=== PATIENT | female | born 1980 | race Caucasian/White ===

== ENCOUNTER 2016-10-25 04:27 | Emergency (ER) | payer BC, MEDICAID ==
--- NOTE | 2016-10-25 05:51 | ER Document Report ---
ED Medical Screen (RME) - General Chief Complaint: Abdominal Pain Stated Complaint: STOMACH PAIN DURING EARLY Time Seen by Provider: 10/25/16 05:48 Mode of Arrival: Ambulatory Information source: Patient Notes: 36-year-old female presents to ED for pelvic pain at 12 weeks . She states she is high risk with Rh- blood. She is a 4 para 0. She states when child was born at 20 weeks treatment for 20 minutes left thumb has not been up on her left. She had a miscarriage last November. She states [facility] and getting ultrasounds about every 2 weeks. States this is the first time she has had pain this time but she has had migraines. She denies any vaginal bleeding. Patient has left pelvic tenderness with hyperactive bowel sounds. I have greeted and performed a rapid initial assessment of this patient. A comprehensive ED assessment and evaluation of the patient, analysis of test results and completion of medical decision making process will be conducted by an additional ED providers. TRAVEL OUTSIDE OF THE [place] IN LAST 30 DAYS: No - Related Data Allergies/Adverse Reactions: promethazine HCl [From Phenergan] Allergy (Intermediate, Verified 08/26/13 10:34 ) Hives hydrocodone [Hydrocodone] Allergy (Unknown, Verified 08/26/13 10:34) VOMITING, hives acetaminophen [From Vicodin] Allergy (Verified 02/15/15 11:17) aspirin [From Fiorinal] Allergy (Verified 08/26/13 10:34) butalbital [From Fioricet] Allergy (Verified 08/26/13 10:34) donepezil HCl [From Aricept] Allergy (Verified 02/15/15 11:17) hydrocodone bitartrate [From Vicodin] Allergy (Verified 02/15/15 11:17) ibuprofen [Ibuprofen] Allergy (Verified 08/26/13 10:34) latex [Latex] Allergy (Verified 08/26/13 10:34) meloxicam [From Mobic] Allergy (Verified 08/26/13 10:34) povidone-iodine [From Betadine] Allergy (Verified 08/26/13 10:34) Soap [From Betadine] Allergy (Verified 08/26/13 10:34) tramadol HCl [From Ultram] Adverse Reaction (Intermediate, Verified 08/26/13 10: 34) VOMITING hydromorphone HCl [From Dilaudid] Adverse Reaction (Unknown, Verified 08/26/13 10:34) VOMITING Past Medical History - Social History Chew tobacco use (# tins/day): No Frequency of alcohol use: Rare Drug Abuse: None Neurological Medical History: Reports: Hx Migraine Renal/ Medical History: Reports: Hx Ovarian Cysts - History of PCOS.. Denies : Hx Peritoneal Dialysis Psychiatric Medical History: Reports: Hx Depression Past Surgical History: Reports: Hx Oral Surgery, Hx Orthopedic Surgery - rt foot x2 - Immunizations Hx Diphtheria, Pertussis, Tetanus Vaccination: Yes Physical Exam - Vital signs Vitals: Temp Pulse Resp BP Pulse Ox 97.7 F 72 18 139/78 H 98 10/25/16 04:33 10/25/16 04:33 10/25/16 04:33 10/25/16 04:33 10/25/16 04:33 Course - Vital Signs Vital signs: Temp Pulse Resp BP Pulse Ox 97.7 F 72 18 139/78 H 98 10/25/16 04:33 10/25/16 04:33 10/25/16 04:33 10/25/16 04:33 10/25/16 04:33
[2016-10-25 06:27] LABS: ABSOLUTE BASOPHILS # (AUTO) 0.1 10^3/uL (0.0-0.2); ABSOLUTE EOSINOPHILS # (AUTO) 0.1 10^3/uL (0.0-0.6); ABSOLUTE LYMPHOCYTES (AUTO) 1.5 10^3/uL (0.5-4.7); ABSOLUTE MONOCYTES (AUTO) 0.8 10^3/uL (0.1-1.4); ABSOLUTE NEUT (AUTO) 8.1 10^3/uL (1.7-8.2); BASOPHILS % (AUTO) 0.6 % (0-2); EOSINOPHILS % (AUTO) 1.1 % (0-6); HEMATOCRIT 38.6 % (36.0-47.0); HGB HCT DIFFERENCE 0.4; MEAN CORPUSCULAR HEMOGLOBIN 32.1 pg (27.0-33.4); MEAN CORPUSCULAR HGB CONC 33.7 g/dL (32.0-36.0); MEAN CORPUSCULAR VOLUME 95 fl (80-97); MONOCYTES % (AUTO) 7.9 % (3-13); RED BLOOD COUNT 4.05 10^6/uL (3.72-5.28); RED CELL DISTRIBUTION WIDTH 13.4 % (11.5-14.0); SEGMENTED NEUTROPHILS % (AUTO) 76.4 % (42-78); WHITE BLOOD COUNT 10.6 10^3/uL (4.0-10.5)
[2016-10-25 06:40] LABS: APPEARANCE,URINE SLIGHTLY-CLOUDY; BILIRUBIN,URINE NEGATIVE (NEGATIVE); GLUCOSE, URINE NEGATIVE (NEGATIVE); KETONES,URINE NEGATIVE (NEGATIVE); LEUKOCYTE ESTERASE,URINE NEGATIVE (NEGATIVE); NITRITE,URINE NEGATIVE (NEGATIVE); PROTEIN,URINE NEGATIVE (NEGATIVE); URINE SPECIFIC GRAVITY 1.009; UROBILINOGEN,URINE NEGATIVE mg/dL (<2.0)
[2016-10-25 06:59] LABS: ANION GAP 9 (5-19); BLOOD UREA NITROGEN 7 mg/dL (7-20); CALCIUM 9.2 mg/dL (8.4-10.2); CARBON DIOXIDE 24 mmol/L (22-30); CHLORIDE 105 mmol/L (98-107); CREATININE RESULT 0.54 mg/dL (0.52-1.25); GLUCOSE 76 mg/dL (75-110); POTASSIUM 3.9 mmol/L (3.6-5.0); SODIUM 138.4 mmol/L (137-145)
--- NOTE | 2016-10-25 07:17 | RADIOLOGY REPORT (SQ) ---
EXAM DESCRIPTION: U/S [id number] TRNABD 1GES W/ODOP COMPLETED DATE/TIME: 10/25/2016 7:00 am REASON FOR STUDY: r lower abd pain COMPARISON: None. TECHNIQUE: Transabdominal static and realtime grayscale images acquired of the pelvis. Additional se lected spectral and color Doppler images recorded. All images stored on PACs. bHCG: Not available. LIMITATIONS: None. FINDINGS: FETUS: Living intrauterine . EGA: 12 weeks and 0 days IVONE: 05/09/2017 FHR: 158 beats per minute. SUBCHORIONIC BLEED: No. SIZE OF BLEED: Not applicable. UTERUS: No masses. No anomalies. CERVICAL LENGTH: 2.7 cm. Closed. RIGHT ADNEXA: Normal ovary with normal vascular flow. No adnexal free fluid. No adnexal masses. 3.5 cm. LEFT ADNEXA: Normal ovary with normal vascular flow. No adnexal free fluid. No adnexal masses. 2.5 cm. FREE FLUID: None. OTHER: No other significant finding. IMPRESSION: LIVING INTRAUTERINE . EGA 12 weeks 0 days. Trimester of : First - 0 to 13 weeks. TECHNICAL DOCUMENTATION: JOB ID: [id number] [employer]- All Rights Reserved
--- NOTE | 2016-10-25 08:45 | ER Document Report ---
ED General - General Chief Complaint: Abdominal Pain Stated Complaint: STOMACH PAIN DURING EARLY Time Seen by Provider: 10/25/16 05:48 Mode of Arrival: Ambulatory TRAVEL OUTSIDE OF THE [place] IN LAST 30 DAYS: No - HPI Patient complains to provider of: Lower abdominal pain Notes: Patient coming in for evaluation of right-sided lower abdominal pain ongoing for the last 2-3 days. Patient is a currently approximately 12 weeks . 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 Patient states receives ultrasounds approximately every 2 weeks states last ultrasound shows a ovarian cyst on the right side. Denies any fevers chills nausea vomiting diarrhea. Patient is compliant with her medications prescribed. - Related Data Allergies/Adverse Reactions: promethazine HCl [From Phenergan] Allergy (Intermediate, Verified 08/26/13 10:34 ) Hives hydrocodone [Hydrocodone] Allergy (Unknown, Verified 08/26/13 10:34) VOMITING, hives acetaminophen [From Vicodin] Allergy (Verified 02/15/15 11:17) aspirin [From Fiorinal] Allergy (Verified 08/26/13 10:34) butalbital [From Fioricet] Allergy (Verified 08/26/13 10:34) donepezil HCl [From Aricept] Allergy (Verified 02/15/15 11:17) hydrocodone bitartrate [From Vicodin] Allergy (Verified 02/15/15 11:17) ibuprofen [Ibuprofen] Allergy (Verified 08/26/13 10:34) latex [Latex] Allergy (Verified 08/26/13 10:34) meloxicam [From Mobic] Allergy (Verified 08/26/13 10:34) povidone-iodine [From Betadine] Allergy (Verified 08/26/13 10:34) Soap [From Betadine] Allergy (Verified 08/26/13 10:34) tramadol HCl [From Ultram] Adverse Reaction (Intermediate, Verified 08/26/13 10: 34) VOMITING hydromorphone HCl [From Dilaudid] Adverse Reaction (Unknown, Verified 08/26/13 10:34) VOMITING Past Medical History - General Information source: Patient - Social History Smoking Status: Never Smoker Chew tobacco use (# tins/day): No Frequency of alcohol use: Rare Drug Abuse: None Family History: Reviewed & Not Pertinent Patient has suicidal ideation: No Patient has homicidal ideation: No Neurological Medical History: Reports: Hx Migraine Renal/ Medical History: Reports: Hx Ovarian Cysts - History of PCOS.. Denies : Hx Peritoneal Dialysis Psychiatric Medical History: Reports: Hx Depression Past Surgical History: Reports: Hx Oral Surgery, Hx Orthopedic Surgery - rt foot x2 - Immunizations Hx Diphtheria, Pertussis, Tetanus Vaccination: Yes Review of Systems - Review of Systems Constitutional: No symptoms reported EENT: No symptoms reported Cardiovascular: No symptoms reported Respiratory: No symptoms reported Gastrointestinal: Abdominal pain Genitourinary: No symptoms reported Female Genitourinary: No symptoms reported Musculoskeletal: No symptoms reported Skin: No symptoms reported Hematologic/Lymphatic: No symptoms reported Neurological/Psychological: No symptoms reported Physical Exam - Vital signs Vitals: Temp Pulse Resp BP Pulse Ox 97.7 F 72 18 139/78 H 98 10/25/16 04:33 10/25/16 04:33 10/25/16 04:33 10/25/16 04:33 10/25/16 04:33 Interpretation: Normal - General General appearance: Appears well, Alert - HEENT Head: Normocephalic, Atraumatic Eyes: Normal Pupils: PERRL - Respiratory Respiratory status: No respiratory distress Chest status: Nontender Breath sounds: Normal Chest palpation: Normal - Cardiovascular Rhythm: Regular Heart sounds: Normal auscultation Murmur: No - Abdominal Inspection: Normal Distension: No distension Bowel sounds: Normal Tenderness: Nontender Organomegaly: No organomegaly - Back Back: Normal, Nontender - Extremities General upper extremity: Normal inspection, Nontender, Normal color, Normal ROM , Normal temperature General lower extremity: Normal inspection, Nontender, Normal color, Normal ROM , Normal temperature, Normal weight bearing. No: Wendy's sign - Neurological Neuro grossly intact: Yes Cognition: Normal Orientation: AAOx4 [place] Coma Scale Eye Opening: Spontaneous [place] Coma Scale Verbal: Oriented [place] Coma Scale Motor: Obeys Commands [place] Coma Scale Total: 15 Speech: Normal Motor strength normal: LUE, RUE, LLE, RLE Sensory: Normal - Psychological Associated symptoms: Normal affect, Normal mood - Skin Skin Temperature: Warm Skin Moisture: Dry Skin Color: Normal Course - Re-evaluation Re-evalutation: 10/25/16 09:29 The patient presents with abdominal pain without signs of peritonitis or other life-threatening or serious etiology. The patient appears stable for discharge and has been instructed to return immediately if the symptoms worsen in any way , or in 8-12hr if not improved for re-evaluation. The patient has been instructed to return if the symptoms worsen or change in any way. Discussed patient's case with [employer]. Agree at this time patient can be discharged home follow-up in the clinic as scheduled. Patient agrees to this plan patient was discharged - Vital Signs Vital signs: Temp Pulse Resp BP Pulse Ox 97.9 F 67 16 117/73 100 10/25/16 09:18 10/25/16 09:18 10/25/16 09:18 10/25/16 09:18 10/25/16 09:18 - Laboratory Result Diagrams: 10/25/16 05:55 10/25/16 05:55 Laboratory results interpreted by me: 10/25/16 10/25/16 10/25/16 05:37 05:55 05:55 WBC 10.6 H Beta HCG, Quant 199098.00 H Urine Ascorbic Acid 20 H Discharge - Discharge Clinical Impression: Abdominal pain during Qualifiers: Trimester: first trimester Qualified Code(s): O26.891 - Other specified related conditions, first trimester Condition: Good Disposition: HOME, SELF-CARE Instructions: Abdominal Pain ([facility]), Pelvic Pain in ([facility]) Additional Instructions: Your results today reveal no critical etiology for the right-sided abdominal pain. Ultrasound is normal. Please make sure he follow-up with your [employer]. Continue take her previously prescribed medications Referrals: YANCI KLEIN MD [Primary Care Provider] - Follow up as needed
[2016-10-25 09:21] VITALS: BP 117/73
== END 2016-10-25 09:20 | disposition home or self-care (01) ==
LOC: ER 04:27
DX: O26.891 Other specified pregnancy related conditions, first trimester (principal); R10.9 Unspecified abdominal pain; Z3A.12 12 weeks gestation of pregnancy; Z88.6 Allergy status to analgesic agent; Z90.710 Acquired absence of both cervix and uterus
CPT/HCPCS: 36415; 76801; 80048; 81001; 84702; 85025; 99284

== ENCOUNTER 2016-11-04 05:32 | Day surgery (SDC) | payer MEDICAID ==
[2016-11-04 06:41] LABS: PROTHROMBIN TIME 13.3 SEC (11.4-15.4)
[2016-11-04 06:42] LABS: PARTIAL THROMBOPLASTIN TIME 29.6 SEC (23.5-35.8)
[2016-11-04 06:53] LABS: HEMATOCRIT 36.9 % (36.0-47.0); HEMOGLOBIN 12.4 g/dL (12.0-15.5); HGB HCT DIFFERENCE 0.3; MEAN CORPUSCULAR HGB CONC 33.5 g/dL (32.0-36.0); MEAN CORPUSCULAR VOLUME 96 fl (80-97); RED BLOOD COUNT 3.86 10^6/uL (3.72-5.28); RED CELL DISTRIBUTION WIDTH 13.5 % (11.5-14.0); WHITE BLOOD COUNT 9.9 10^3/uL (4.0-10.5)
[2016-11-04] MEDS ORDERED: FENTANYL CITRATE INJ/PF 100 MCG/2 ML AMPUL ONE (07:20)
[2016-11-04] MEDS ORDERED: PROPOFOL INJ 200 MG/20 ML VIAL IV ONE (07:21)
--- NOTE | 2016-11-04 08:20 | Operative Report ---
Operative Report DATE OF SURGERY: 11/04/16 PREOPERATIVE DIAGNOSIS: Incompetent cervix, history of a LEEP POSTOPERATIVE DIAGNOSIS: Same OPERATION: Cervical cerclage, Martin'isra SURGEON: VAMSI BENNETT ANESTHESIA: Spinal TISSUE REMOVED OR ALTERED: Cervix COMPLICATIONS: None ESTIMATED BLOOD LOSS: 10 cc INTRAOPERATIVE FINDINGS: Short appearing cervix PROCEDURE: The patient was taken to the OR and placed in the dorsolithotomy position after her spinal. Her perineum and vagina were prepped and draped in a sterile fashion. Her bladder was drained with a red rubber catheter. A weighted speculum was placed in the vagina. Using a Brianda retractor anteriorly and a sidewall retractor on each side of the vagina exposure was obtained. The cervix appeared shortened. The bladder reflection and the posterior reflection were identified. A #2 Ethibond suture was then placed starting at 12:00 distal to the bladder refract reflection. The first stitch was placed from 12 to 9:00 then 9:00 to 6:00 6:00 to 3:00 and 3:00 back to 12:00. The suture was tied. The small amount of bleeding was evacuated from the vagina. Instruments removed. She was brought to recovery room in stable condition.
[2016-11-04] MEDS ORDERED: ACETAMINOPHEN 325 MG TABLET ONE (09:09)
--- NOTE | 2016-11-04 09:51 | RADIOLOGY REPORT (SQ) ---
EXAM DESCRIPTION: U/S OB LIMITED COMPLETED DATE/TIME: 11/04/2016 9:11 am REASON FOR STUDY: S/P CERCLAGE,CERVICAL LENGTH AND FHT'S ONLY O20.0 THREATENED COMPARISON: 10/25/2016 TECHNIQUE: Limited transabdominal grayscale ultrasound for evaluation of specific requested obstetri segundo parameters. LIMITATIONS: None. FINDINGS: CERVICAL LENGTH: 3.9 cm Closed. FHR: 165 beats per minute. OTHER: No other significant findings. IMPRESSION: LIMITED OBSTETRICAL ULTRASOUND WITH MEASURED PARAMETERS DELINEATED ABOVE. Trimester of : Second trimester - 13 weeks 1 day to 27 weeks 6 days. TECHNICAL DOCUMENTATION: JOB ID: [id number] [employer]- All Rights Reserved
[2016-11-04 13:05] VITALS: BP 111/71
== END 2016-11-04 18:30 | disposition home or self-care (01) ==
LOC: OROUT 05:32
PROVIDERS: ATTEND Obstetrics & Gynecology
PROC: 0UVC7ZZ Restriction of Cervix, Via Natural or Artificial Opening (ICD-10-PCS; principal; 2016-11-04 07:30)
DX: O34.32 Maternal care for cervical incompetence, second trimester (principal); O99.282 Endocrine, nutritional and metabolic diseases complicating pregnancy, second trimester; E07.9 Disorder of thyroid, unspecified; R01.1 Cardiac murmur, unspecified; Z79.899 Other long term (current) drug therapy; Z88.5 Allergy status to narcotic agent; Z88.8 Allergy status to other drugs, medicaments and biological substances; Z88.6 Allergy status to analgesic agent; Z91.040 Latex allergy status
CPT/HCPCS: 86900; 86901; 36415; 86850; 85027; 85610; 85730; 76815; 59320; J2790; J3490; 948; J2704; J3010

== ENCOUNTER 2016-11-06 10:53 | Emergency (ER) | payer MEDICAID ==
--- NOTE | 2016-11-06 11:37 | ER Document Report ---
ED Medical Screen (RME) - General Chief Complaint: Vaginal Itching Stated Complaint: POST OP PROBLEM Time Seen by Provider: 11/06/16 11:34 Mode of Arrival: Ambulatory Information source: Patient Notes: This is a 36-year-old female 3 para 0, history of 2 prior miscarriages ( first 1 at 20 weeks, second 1 at 8 weeks), status post cervical cerclage is ago by Dr. Coronado for threatened miscarriage. The patient presents to the emergency with room with vaginal itching and dysuria with some blood clots. She had ccalled the OB for Dr. Coronado and was referred to the emergency room. Patient denies any syncope, chest pain, shortness of breath or abdominal pain. Obstetrical ultrasound was 2 days ago which revealed a viable intrauterine gestation in second trimester. TRAVEL OUTSIDE OF THE [place] IN LAST 30 DAYS: No - Related Data Allergies/Adverse Reactions: acetaminophen [From Vicodin] Allergy (Severe, Verified 11/03/16 13:25) itch,hives butalbital [From Fioricet] Allergy (Severe, Verified 11/03/16 13:25) Hives latex [Latex] Allergy (Severe, Verified 11/03/16 13:25) hives,itch shellfish derived Allergy (Severe, Verified 11/03/16 13:50) Hives aspirin [From Fiorinal] Allergy (Intermediate, Verified 11/03/16 13:25) Hives promethazine HCl [From Phenergan] Allergy (Intermediate, Verified 08/26/13 10:34 ) Hives hydrocodone [Hydrocodone] Allergy (Unknown, Verified 08/26/13 10:34) VOMITING, hives donepezil HCl [From Aricept] Allergy (Verified 02/15/15 11:17) hydrocodone bitartrate [From Vicodin] Allergy (Verified 02/15/15 11:17) ibuprofen [Ibuprofen] Allergy (Verified 08/26/13 10:34) meloxicam [From Mobic] Allergy (Verified 08/26/13 10:34) povidone-iodine [From Betadine] Allergy (Verified 11/03/16 13:25) Hives Soap [From Betadine] Allergy (Verified 08/26/13 10:34) tramadol HCl [From Ultram] Adverse Reaction (Intermediate, Verified 08/26/13 10: 34) VOMITING hydromorphone HCl [From Dilaudid] Adverse Reaction (Unknown, Verified 08/26/13 10:34) VOMITING Past Medical History - General Last Menstrual Period: 07/16/16 - Social History Chew tobacco use (# tins/day): No Frequency of alcohol use: None Drug Abuse: None - Past Medical History Cardiac Medical History: Denies: Hx Coronary Artery Disease, Hx Heart Attack, Hx Hypertension Pulmonary Medical History: Reports: Hx Bronchitis Denies: Hx Asthma, Hx COPD, Hx Pneumonia Neurological Medical History: Reports: Hx Migraine. Denies: Hx Cerebrovascular Accident, Hx Seizures Renal/ Medical History: Reports: Hx Ovarian Cysts - History of PCOS.. Denies : Hx Peritoneal Dialysis Musculoskeltal Medical History: Denies Hx Arthritis Psychiatric Medical History: Reports: Hx Depression Past Surgical History: Reports: Hx Oral Surgery, Hx Orthopedic Surgery - rt foot x2 - Immunizations Hx Diphtheria, Pertussis, Tetanus Vaccination: No
[2016-11-06 12:19] LABS: APPEARANCE,URINE SLIGHTLY-CLOUDY; BILIRUBIN,URINE NEGATIVE (NEGATIVE); GLUCOSE, URINE NEGATIVE (NEGATIVE); KETONES,URINE TRACE mg/dL (NEGATIVE); LEUKOCYTE ESTERASE,URINE TRACE (NEGATIVE); NITRITE,URINE NEGATIVE (NEGATIVE); PROTEIN,URINE NEGATIVE (NEGATIVE); URINE SPECIFIC GRAVITY 1.027; UROBILINOGEN,URINE NEGATIVE mg/dL (<2.0)
--- NOTE | 2016-11-06 13:11 | ER Document Report ---
ED GI/ - General Chief Complaint: Vaginal Itching Stated Complaint: POST OP PROBLEM Time Seen by Provider: 11/06/16 11:34 Mode of Arrival: Ambulatory Information source: Patient Notes: 36-year-old female weeks 4 days is complaining of introitus and vaginal burning and itching with light pink spotting Monday and Monday and brown clot last night. Dr. Martinez did a cerclage Monday. No pelvic pain. No fever. She said it would be okay to look at her external genitalia but does not want me to look inside her vagina she wants Dr. Martinez called first. She had already spoken to Tamra Soto over the phone who recommended having Dr. Martinez look at her. dr martinez said for her to follow up this week, no treatment needed. TRAVEL OUTSIDE OF THE [place] IN LAST 30 DAYS: No - Related Data Allergies/Adverse Reactions: butalbital [From Fioricet] Allergy (Severe, Verified 11/03/16 13:25) Hives latex [Latex] Allergy (Severe, Verified 11/03/16 13:25) hives,itch shellfish derived Allergy (Severe, Verified 11/03/16 13:50) Hives aspirin [From Fiorinal] Allergy (Intermediate, Verified 11/03/16 13:25) Hives promethazine HCl [From Phenergan] Allergy (Intermediate, Verified 08/26/13 10:34 ) Hives hydrocodone [Hydrocodone] Allergy (Unknown, Verified 08/26/13 10:34) VOMITING, hives donepezil HCl [From Aricept] Allergy (Verified 02/15/15 11:17) hydrocodone bitartrate [From Vicodin] Allergy (Verified 02/15/15 11:17) ibuprofen [Ibuprofen] Allergy (Verified 08/26/13 10:34) meloxicam [From Mobic] Allergy (Verified 08/26/13 10:34) povidone-iodine [From Betadine] Allergy (Verified 11/03/16 13:25) Hives Soap [From Betadine] Allergy (Verified 08/26/13 10:34) tramadol HCl [From Ultram] Adverse Reaction (Intermediate, Verified 08/26/13 10: 34) VOMITING hydromorphone HCl [From Dilaudid] Adverse Reaction (Unknown, Verified 08/26/13 10:34) VOMITING Past Medical History - General Information source: Patient Last Menstrual Period: 07/16/16 - Social History Smoking Status: Never Smoker Chew tobacco use (# tins/day): No Frequency of alcohol use: None Drug Abuse: None Family History: Reviewed & Not Pertinent Patient has suicidal ideation: No Patient has homicidal ideation: No Pulmonary Medical History: Reports: Hx Bronchitis Neurological Medical History: Reports: Hx Migraine Renal/ Medical History: Reports: Hx Ovarian Cysts - History of PCOS. Psychiatric Medical History: Reports: Hx Depression Surgical Hx: Negative Past Surgical History: Reports: Hx Oral Surgery, Hx Orthopedic Surgery - rt foot x2 - Immunizations Hx Diphtheria, Pertussis, Tetanus Vaccination: No Review of Systems - Review of Systems Constitutional: No symptoms reported EENT: No symptoms reported Cardiovascular: No symptoms reported Respiratory: No symptoms reported Gastrointestinal: No symptoms reported Genitourinary: No symptoms reported Female Genitourinary: See HPI Musculoskeletal: No symptoms reported Skin: No symptoms reported Hematologic/Lymphatic: No symptoms reported Neurological/Psychological: No symptoms reported Physical Exam - Vital signs Vitals: Temp Pulse Resp BP Pulse Ox 97.9 F 95 16 113/79 100 11/06/16 10:58 11/06/16 10:58 11/06/16 10:58 11/06/16 10:58 11/06/16 10:58 Interpretation: Normal - General General appearance: Appears well, Alert In distress: None - HEENT Head: Normocephalic, Atraumatic Eyes: Normal Pupils: PERRL Neck: Supple - Respiratory Respiratory status: No respiratory distress Chest status: Nontender Breath sounds: Normal Chest palpation: Normal - Cardiovascular Rhythm: Regular Heart sounds: Normal auscultation Murmur: No - Abdominal Inspection: Normal Distension: No distension Bowel sounds: Normal Tenderness: Nontender Organomegaly: Other - ? fundus at symphysis pubis - Back Back: Normal, Nontender. No: CVA tenderness - Extremities General upper extremity: Normal inspection, Nontender, Normal color, Normal ROM , Normal temperature General lower extremity: Normal inspection, Nontender, Normal color, Normal ROM , Normal temperature, Normal weight bearing. No: Wendy's sign - Neurological Neuro grossly intact: Yes Cognition: Normal Orientation: AAOx4 [place] Coma Scale Eye Opening: Spontaneous [place] Coma Scale Verbal: Oriented [place] Coma Scale Motor: Obeys Commands [place] Coma Scale Total: 15 Speech: Normal Motor strength normal: LUE, RUE, LLE, RLE Sensory: Normal - Psychological Associated symptoms: Normal affect, Normal mood - Skin Skin Temperature: Warm Skin Moisture: Dry Skin Color: Normal Skin irregularity: negative: Rash Course - Re-evaluation Re-evalutation: 11/06/16 15:35 Patient thinks her labia are mildly swollen, wet prep sent to the lab there was no blood on the Q-tip, I inserted a Q-tip into the introitus to look for yeast. This non malodorous discharge at the introitus. FHT 153 per nurse. 11/06/16 16:08 wet prep negative for yeast. Call to dr. martinez. 11/06/16 16:13 toñito martinez states that she does not need treatment today, call for appointment to be rechecked this week. will have her return to the ER for any bleeding or pain. 11/06/16 16:23 pt denies allergy to tylenol, it is hydrocodone that she gets hives from, is OK with percocet. Told the nurse to change the allergy status - Vital Signs Vital signs: Temp Pulse Resp BP Pulse Ox 98.1 F 90 16 110/74 100 11/06/16 16:43 11/06/16 16:43 11/06/16 16:43 11/06/16 16:43 11/06/16 16:43 - Laboratory Laboratory results interpreted by me: 11/06/16 11:38 Urine Ketones TRACE H Ur Leukocyte Esterase TRACE H Urine Ascorbic Acid 40 H Discharge - Discharge Clinical Impression: introitus and labial parathesia, Spotting Condition: Good Disposition: HOME, SELF-CARE Instructions: Bleeding During Early ([facility]), Vaginitis ([facility]) Additional Instructions: to er if any worsening symptoms, bleeding, pain dr. martinez wants you to be rechecked this week in the office Forms: Return to Work Referrals: YANCI KLEIN MD [Primary Care Provider] - Follow up tomorrow (call for appointment this week)
[2016-11-06] MEDS ORDERED: ACETAMINOPHEN 325 MG TABLET PO ONE (16:21)
[2016-11-06 16:44] VITALS: BP 110/74
== END 2016-11-06 16:44 | disposition home or self-care (01) ==
LOC: ER 10:53
DX: O26.852 Spotting complicating pregnancy, second trimester (principal); R20.2 Paresthesia of skin; L29.2 Pruritus vulvae; Z91.040 Latex allergy status; Z98.890 Other specified postprocedural states; Z88.6 Allergy status to analgesic agent; Z91.013 Allergy to seafood
CPT/HCPCS: 99283; 87210; 81001; J3490

== ENCOUNTER 2016-11-08 03:04 | Emergency (ER) | payer MEDICAID ==
--- NOTE | 2016-11-08 03:23 | ER Document Report ---
ED General - General Chief Complaint: Headache Stated Complaint: HEAD PAIN Time Seen by Provider: 11/08/16 03:16 Mode of Arrival: Ambulatory Information source: Patient Notes: 36-year-old female 14 weeks history of epidural block performed 2 days prior presents with complaints of continued headache. Patient notes symptoms worsened when she sits up, denies any fevers or chills nausea vomiting or diarrhea patient has taken large amount of caffeine TRAVEL OUTSIDE OF THE [place] IN LAST 30 DAYS: No - HPI Onset: Other Onset/Duration: Sudden Quality of pain: Pressure Severity: Mild Pain Level: 1 Associated symptoms: Headache Exacerbated by: Sitting Relieved by: Supine Similar symptoms previously: Yes Recently seen / treated by doctor: Yes - Related Data Allergies/Adverse Reactions: butalbital [From Fioricet] Allergy (Severe, Verified 11/03/16 13:25) Hives latex [Latex] Allergy (Severe, Verified 11/03/16 13:25) hives,itch shellfish derived Allergy (Severe, Verified 11/03/16 13:50) Hives aspirin [From Fiorinal] Allergy (Intermediate, Verified 11/03/16 13:25) Hives promethazine HCl [From Phenergan] Allergy (Intermediate, Verified 08/26/13 10:34 ) Hives hydrocodone [Hydrocodone] Allergy (Unknown, Verified 08/26/13 10:34) VOMITING, hives donepezil HCl [From Aricept] Allergy (Verified 02/15/15 11:17) hydrocodone bitartrate [From Vicodin] Allergy (Verified 02/15/15 11:17) ibuprofen [Ibuprofen] Allergy (Verified 08/26/13 10:34) meloxicam [From Mobic] Allergy (Verified 08/26/13 10:34) povidone-iodine [From Betadine] Allergy (Verified 11/03/16 13:25) Hives Soap [From Betadine] Allergy (Verified 08/26/13 10:34) tramadol HCl [From Ultram] Adverse Reaction (Intermediate, Verified 08/26/13 10: 34) VOMITING hydromorphone HCl [From Dilaudid] Adverse Reaction (Unknown, Verified 08/26/13 10:34) VOMITING Past Medical History - Social History Smoking Status: Never Smoker Cigarette use (# per day): No Chew tobacco use (# tins/day): No Smoking Education Provided: No Family History: Reviewed & Not Pertinent - Past Medical History Cardiac Medical History: Denies: Hx Coronary Artery Disease, Hx Heart Attack, Hx Hypertension Pulmonary Medical History: Reports: Hx Bronchitis Denies: Hx Asthma, Hx COPD, Hx Pneumonia Neurological Medical History: Reports: Hx Migraine. Denies: Hx Cerebrovascular Accident, Hx Seizures Renal/ Medical History: Reports: Hx Ovarian Cysts - History of PCOS.. Denies : Hx Peritoneal Dialysis Musculoskeltal Medical History: Denies Hx Arthritis Psychiatric Medical History: Reports: Hx Depression Past Surgical History: Reports: Hx Oral Surgery, Hx Orthopedic Surgery - rt foot x2 - Immunizations Hx Diphtheria, Pertussis, Tetanus Vaccination: No Review of Systems - Review of Systems Notes: REVIEW OF SYSTEMS: CONSTITUTIONAL : Denies fever, chills, or sweats. Denies recent illness. EENT: Denies eye, ear, throat, or mouth pain or symptoms. Denies nasal or sinus congestion or discharge. Denies throat, tongue, or mouth swelling or difficulty swallowing. CARDIOVASCULAR: Denies chest pain. Denies palpitations or racing or irregular heart beat. Denies ankle edema. RESPIRATORY: Denies cough, cold, or chest congestion. Denies shortness of breath, difficulty breathing, or wheezing. GASTROINTESTINAL: Denies abdominal pain or distention. Denies nausea, vomiting , or diarrhea. Denies blood in vomitus, stools, or per rectum. Denies black, tarry stools. Denies constipation. GENITOURINARY: Denies difficulty urinating, painful urination, burning, frequency, blood in urine, or discharge. FEMALE GENITOURINARY: Denies vaginal bleeding, heavy or abnormal periods, irregular periods. Denies vaginal discharge or odor. MUSCULOSKELETAL: Denies back or neck pain or stiffness. Denies joint pain or swelling. SKIN: Denies rash, lesions or sores. HEMATOLOGIC : Denies easy bruising or bleeding. LYMPHATIC: Denies swollen, enlarged glands. NEUROLOGICAL: Admits to headache PSYCHIATRIC: Denies anxiety or stress. Denies depression, suicidal ideation, or homicidal ideation. ALL OTHER SYSTEMS REVIEWED AND NEGATIVE. PHYSICAL EXAMINATION: GENERAL: Well-appearing, well-nourished and in no acute distress. HEAD: Atraumatic, normocephalic. EYES: Pupils equal round and reactive to light, extraocular movements intact, conjunctiva are normal. ENT: Nares patent, oropharynx clear without exudates. Moist mucous membranes. NECK: Normal range of motion, supple without lymphadenopathy LUNGS: Breath sounds clear to auscultation bilaterally and equal. No wheezes rales or rhonchi. HEART: Regular rate and rhythm without murmurs ABDOMEN: Soft, nontender, nondistended abdomen. No guarding, no rebound. No masses appreciated. Female : deferred Musculoskeletal: Normal range of motion, no pitting or edema. No cyanosis. NEUROLOGICAL: Cranial nerves grossly intact. Normal speech, normal gait. Normal sensory, motor exams PSYCH: Normal mood, normal affect. SKIN: Warm, Dry, normal turgor, no rashes or lesions noted. Dictation was performed using [employer] voice recognition software Physical Exam - Vital signs Vitals: Temp Pulse Resp BP Pulse Ox 98.0 F 85 16 115/70 98 11/08/16 03:13 11/08/16 03:13 11/08/16 03:13 11/08/16 03:13 11/08/16 03:13 Course - Re-evaluation Re-evalutation: 11/08/16 03:29 Spoke mallory Patel, requests pt have a blood patch performed 11/08/16 03:[address] Cantu anesthesiologist, states he will gladly perform procedure around 10am at [facility], pt given infromation After performing a Medical Screening Examination, I estimate there is LOW risk for ACUTE GLAUCOMA, TEMPORAL ARTERITIS, MENINGITIS, INCRANIAL HEMORRHAGE, or ISCHEMIC STROKE thus I consider the discharge disposition reasonable. I have reevaluated this patient multiple times and no significant life threatening changes are noted. The patient and I have discussed the diagnosis and risks, and we agree with discharging home with close follow-up with the understanding that symptoms and presentations can change. We also discussed returning to the Emergency Department immediately if new or worsening symptoms occur. We have discussed the symptoms which are most concerning (e.g., changing or worsening symptoms, new numbness or weakness, vomiting, fever) that necessitate immediate return. 11/08/16 03:38 11/08/16 04:00 - Vital Signs Vital signs: Temp Pulse Resp BP Pulse Ox 98.0 F 84 18 122/70 98 11/08/16 03:13 11/08/16 03:49 11/08/16 03:49 11/08/16 03:49 11/08/16 03:49 Discharge - Discharge Clinical Impression: Headache, spinal, postoperative Condition: Stable Disposition: HOME, SELF-CARE Instructions: Headache ([facility]) Additional Instructions: Please follow-up at the ambulatory surgical unit at [address] Cantu for a blood patch placement Referrals: YANCI KLEIN MD [Primary Care Provider] - Follow up as needed
[2016-11-08 03:54] VITALS: BP 122/70
== END 2016-11-08 03:49 | disposition home or self-care (01) ==
LOC: ER 03:04
DX: R51 Headache (principal); G89.18 Other acute postprocedural pain; Z3A.14 14 weeks gestation of pregnancy
CPT/HCPCS: 99283

== ENCOUNTER 2017-02-01 08:41 | Outpatient (CLI) | payer MEDICAID ==
[2017-02-01 09:41] LABS: APPEARANCE,URINE SLIGHTLY-CLOUDY; BILIRUBIN,URINE NEGATIVE (NEGATIVE); GLUCOSE, URINE NEGATIVE (NEGATIVE); KETONES,URINE NEGATIVE (NEGATIVE); LEUKOCYTE ESTERASE,URINE NEGATIVE (NEGATIVE); NITRITE,URINE NEGATIVE (NEGATIVE); PROTEIN,URINE NEGATIVE (NEGATIVE); URINE SPECIFIC GRAVITY 1.015; UROBILINOGEN,URINE NEGATIVE mg/dL (<2.0)
[2017-02-01] MEDS ORDERED: RINGERS SOLUTION,LACTATED 1,000 ML IV PRN (09:43)
[2017-02-01 09:52] LABS: URINE BARBITURATES SCREEN NEGATIVE; URINE METHADONE SCREEN NEGATIVE; URINE OPIATES LOW NEGATIVE; URINE PHENCYCLIDINE SCREEN NEGATIVE
--- NOTE | 2017-02-01 11:24 | RADIOLOGY REPORT (SQ) ---
EXAM DESCRIPTION: U/S OB LIMITED COMPLETED DATE/TIME: 02/01/2017 11:15 am REASON FOR STUDY: US for cervical length-- pt has cerclage COMPARISON: 11/04/2016 TECHNIQUE: Limited transabdominal grayscale ultrasound for evaluation of specific requested obstetri segundo parameters. LIMITATIONS: None. FINDINGS: CERVICAL LENGTH: 3 cm, with cerclage present Closed. KENA: Largest pocket 5.6 cm. FHR: 141 beats per minute. PRESENTATION: Breech OTHER: Posterior placenta IMPRESSION: LIMITED OBSTETRICAL ULTRASOUND WITH MEASURED PARAMETERS DELINEATED ABOVE. Trimester of : Third trimester - 28 weeks to delivery. TECHNICAL DOCUMENTATION: JOB ID: [id number] [employer]- All Rights Reserved
== END 2017-02-01 12:38 | disposition home or self-care (01) ==
LOC: LC 08:41
PROVIDERS: ATTEND Student in an Organized Health Care Education/Training Program
PROC: 4A1HXCZ Monitoring of Products of Conception, Cardiac Rate, External Approach (ICD-10-PCS; principal; 2017-02-01)
DX: O47.02 False labor before 37 completed weeks of gestation, second trimester (principal); Z3A.26 26 weeks gestation of pregnancy
CPT/HCPCS: 76815; 80307; 81001; 94760

== ENCOUNTER 2017-03-02 14:17 | Outpatient (CLI) | payer MEDICAID ==
[2017-03-02 15:06] LABS: APPEARANCE,URINE SLIGHTLY-CLOUDY; BILIRUBIN,URINE NEGATIVE (NEGATIVE); CALCIUM OXALATE CRYSTALS,URINE RARE /HPF; GLUCOSE, URINE NEGATIVE (NEGATIVE); KETONES,URINE NEGATIVE (NEGATIVE); LEUKOCYTE ESTERASE,URINE NEGATIVE (NEGATIVE); NITRITE,URINE NEGATIVE (NEGATIVE); PROTEIN,URINE NEGATIVE (NEGATIVE); URINE SPECIFIC GRAVITY 1.012; UROBILINOGEN,URINE NEGATIVE mg/dL (<2.0)
[2017-03-02 15:26] LABS: URINE BARBITURATES SCREEN NEGATIVE; URINE METHADONE SCREEN NEGATIVE; URINE OPIATES LOW NEGATIVE; URINE PHENCYCLIDINE SCREEN NEGATIVE
--- NOTE | 2017-03-02 16:36 | RADIOLOGY REPORT (SQ) ---
EXAM DESCRIPTION: U/S OB LIMITED COMPLETED DATE/TIME: 03/02/2017 4:26 pm REASON FOR STUDY: CERCLAGE; IUP @ 30 WKS; KENNETH; H/O PTDELIVER COMPARISON: 02/10/2017, 02/01/2017, 11/04/2016 OB ultrasound TECHNIQUE: Limited transvaginal and transabdominal grayscale ultrasound for evaluation of specific r equested obstetrical parameters. LIMITATIONS: None. FINDINGS: CERVICAL LENGTH: 4.6 cm Closed. KENA: 16.4 cm. FHR: 137 beats per minute. PRESENTATION: Transverse OTHER: Placenta posterior grade 1 IMPRESSION: LIMITED OBSTETRICAL ULTRASOUND WITH MEASURED PARAMETERS DELINEATED ABOVE. Trimester of : Second trimester - 13 weeks 1 day to 27 weeks 6 days. TECHNICAL DOCUMENTATION: JOB ID: [id number] [employer]- All Rights Reserved
== END 2017-03-02 16:53 | disposition home or self-care (01) ==
LOC: LC 14:17
PROVIDERS: ATTEND Obstetrics & Gynecology
PROC: 4A1HXCZ Monitoring of Products of Conception, Cardiac Rate, External Approach (ICD-10-PCS; principal; 2017-03-02)
DX: O47.1 False labor at or after 37 completed weeks of gestation (principal); O09.523 Supervision of elderly multigravida, third trimester; Z3A.30 30 weeks gestation of pregnancy
CPT/HCPCS: 76815; 80307; 81001

== ENCOUNTER 2017-03-03 20:46 | Outpatient (CLI) | payer MEDICAID ==
[2017-03-03 21:43] LABS: APPEARANCE,URINE SLIGHTLY-CLOUDY; BILIRUBIN,URINE NEGATIVE (NEGATIVE); CALCIUM OXALATE CRYSTALS,URINE MANY /HPF; GLUCOSE, URINE NEGATIVE (NEGATIVE); KETONES,URINE NEGATIVE (NEGATIVE); LEUKOCYTE ESTERASE,URINE NEGATIVE (NEGATIVE); NITRITE,URINE NEGATIVE (NEGATIVE); PROTEIN,URINE 30 mg/dL (NEGATIVE); UROBILINOGEN,URINE NEGATIVE mg/dL (<2.0)
[2017-03-03 22:02] LABS: URINE BARBITURATES SCREEN NEGATIVE; URINE METHADONE SCREEN NEGATIVE; URINE OPIATES LOW NEGATIVE; URINE PHENCYCLIDINE SCREEN NEGATIVE
== END 2017-03-03 22:17 | disposition home or self-care (01) ==
LOC: LC 20:46
PROVIDERS: ATTEND Obstetrics & Gynecology Gynecology
PROC: 4A1HXCZ Monitoring of Products of Conception, Cardiac Rate, External Approach (ICD-10-PCS; principal; 2017-03-03)
DX: O36.8130 Decreased fetal movements, third trimester, not applicable or unspecified (principal); O09.523 Supervision of elderly multigravida, third trimester; Z3A.30 30 weeks gestation of pregnancy
CPT/HCPCS: 80307; 81001

== ENCOUNTER 2017-03-13 13:05 | Observation (INO) | payer MEDICAID ==
[2017-03-13 13:48] LABS: APPEARANCE,URINE CLEAR; BILIRUBIN,URINE NEGATIVE (NEGATIVE); GLUCOSE, URINE NEGATIVE (NEGATIVE); KETONES,URINE NEGATIVE (NEGATIVE); LEUKOCYTE ESTERASE,URINE NEGATIVE (NEGATIVE); NITRITE,URINE NEGATIVE (NEGATIVE); PROTEIN,URINE NEGATIVE (NEGATIVE); URINE SPECIFIC GRAVITY 1.005; UROBILINOGEN,URINE NEGATIVE mg/dL (<2.0)
[2017-03-13 13:51] LABS: AMNISURE (ROM) NEGATIVE (NEGATIVE)
[2017-03-13 14:13] LABS: URINE BARBITURATES SCREEN NEGATIVE; URINE METHADONE SCREEN NEGATIVE; URINE OPIATES LOW NEGATIVE; URINE PHENCYCLIDINE SCREEN NEGATIVE
--- NOTE | 2017-03-13 16:49 | RADIOLOGY REPORT (SQ) ---
EXAM DESCRIPTION: U/S OB LIMITED COMPLETED DATE/TIME: 03/13/2017 4:33 pm REASON FOR STUDY: cervical length, presentation, cerclage COMPARISON: None. TECHNIQUE: Limited transabdominal grayscale ultrasound for evaluation of specific requested obstetri segundo parameters. LIMITATIONS: None. FINDINGS: CERVICAL LENGTH: 5.1 cm. Closed. KENA: 20.8 cm. Cm. FHR: 171 beats per minute. PRESENTATION: Breech OTHER: No other significant findings. IMPRESSION: LIMITED OBSTETRICAL ULTRASOUND WITH MEASURED PARAMETERS DELINEATED ABOVE. Trimester of : 3rd TECHNICAL DOCUMENTATION: JOB ID: [id number] [employer]- All Rights Reserved
[2017-03-13] MEDS: RINGERS SOLUTION,LACTATED 1,000 ML IV PRN ×2 (18:23→20:55)
[2017-03-13] MEDS ORDERED: BETAMET ACET/BETAMET NA INJ 6 MG/1 ML IM ONE (18:23)
[2017-03-13] MEDS ORDERED: BETAMET ACET/BETAMET NA INJ 6 MG/1 ML ONE (18:45)
[2017-03-13] MEDS ORDERED: ZOLPIDEM TARTRATE 5 MG TABLET PO PRN (20:44)
[2017-03-13] MEDS ORDERED: NIFEDIPINE 10 MG CAPSULE ONE (20:58)
[2017-03-13] MEDS: NIFEDIPINE 10 MG CAPSULE PO SCH (21:18)
--- NOTE | 2017-03-14 00:50 | L&D Progress Notes ---
PROGRESS NOTES Datetime Report Generated by CPN: 03/14/2017 00:50 PROGRESS NOTE Impression Other: Rare contractions Plan: Continue Present Management Informed Consent Obtained: Risks, Benefits and Alternatives Discussed Comment: Pt with improved symptoms and only irregular ctx with procardia. Will continue with procardia. Needs to complete BMZ at 24 hours from last. Continue with present management. MEMBRANES Membranes: Intact Membranes: Intact FETUS A Presentation: Vertex SIGNATURE SIGNATURE: [id number] Signature: with User ID: Angel
[2017-03-14] MEDS ORDERED: ACETAMINOPHEN 325 MG TABLET PO ONE (00:51)
[2017-03-14] MEDS ORDERED: ACETAMINOPHEN 325 MG TABLET ONE (00:52)
[2017-03-14] MEDS ORDERED: NIFEDIPINE 10 MG CAPSULE ONE ×2 (03:39→09:53)
[2017-03-14] MEDS: NIFEDIPINE 10 MG CAPSULE PO SCH (03:44)
[2017-03-14] MEDS: RINGERS SOLUTION,LACTATED 1,000 ML IV PRN (07:20)
--- NOTE | 2017-03-14 09:03 | PDOC PROGRESS REPORT ---
Subjective Progress Note for:: 03/14/17 - pt asking to go home Subjective:: denies regular contractions. states contractions are about one/hr and nonpainful , denies LOF or VB. agrees to return to L&D if any sx return. discussed procardia PRN for contractions and hold if lightheaded. Reason For Visit: PRE TERM CONTRACTIONS, CERCLAGE IN PLACE Physical Exam - Physical Exam Vital Signs: Intake & Output 03/13/17 03/14/17 03/15/17 06:59 06:59 06:59 Weight 69.5 kg General appearance: PRESENT: no acute distress, cooperative GI/Abdominal exam: PRESENT: soft - nontender Psychiatric exam: PRESENT: normal mood Result Laboratory Results: 03/13/17 13:10 Urine Color STRAW Urine Appearance CLEAR Urine pH 6.0 Ur Specific [place] 1.005 Urine Protein NEGATIVE Urine Glucose (UA) NEGATIVE Urine Ketones NEGATIVE Urine Blood NEGATIVE Urine Nitrite NEGATIVE Ur Leukocyte Esterase NEGATIVE Urine WBC (Auto) 1 Urine RBC (Auto) 0 Impressions: Obstetrics Ultrasound 03/13/17 15:29 IMPRESSION: LIMITED OBSTETRICAL ULTRASOUND WITH MEASURED PARAMETERS DELINEATED ABOVE. Trimester of : 3rd Assessment & Plan - Diagnosis (1) Cervical cerclage suture present in third trimester Is this a current diagnosis for this admission?: Yes (2) History of delivery, currently in third trimester Is this a current diagnosis for this admission?: Yes (3) uterine contractions in third trimester, antepartum Is this a current diagnosis for this admission?: Yes - Time Time Spent with patient: Less than 15 minutes Medications reviewed and adjusted accordingly: Yes Anticipated discharge: Home Within: within 24 hours - after NST and breakfast
[2017-03-14] MEDS ORDERED: BETAMET ACET/BETAMET NA INJ 6 MG/1 ML ONE (09:53)
[2017-03-14] MEDS ORDERED: DOCUSATE SODIUM 100 MG CAPSULE PO SCH (10:00)
[2017-03-14 10:06] VITALS: BP 106/58
== END 2017-03-14 10:10 | disposition home or self-care (01) ==
LOC: LC 13:05 → LR 20:55 → INTOOBSV 20:55
PROVIDERS: ADMIT Student in an Organized Health Care Education/Training Program; ATTEND Student in an Organized Health Care Education/Training Program
DX: O34.33 Maternal care for cervical incompetence, third trimester (principal); O09.213 Supervision of pregnancy with history of pre-term labor, third trimester; O60.03 Preterm labor without delivery, third trimester; O26.899 Other specified pregnancy related conditions, unspecified trimester; R10.9 Unspecified abdominal pain; M54.9 Dorsalgia, unspecified; Z98.890 Other specified postprocedural states
CPT/HCPCS: 59025; 84112; 87210; 81001; 87081; 80307; 87491; 87591; 76815; G0378 ×2; G0379; J3490 ×3; J0702 ×2

== ENCOUNTER 2017-03-17 21:33 | Outpatient (CLI) | payer MEDICAID ==
[2017-03-17 22:43] LABS: APPEARANCE,URINE CLEAR; BILIRUBIN,URINE NEGATIVE (NEGATIVE); GLUCOSE, URINE NEGATIVE (NEGATIVE); KETONES,URINE NEGATIVE (NEGATIVE); LEUKOCYTE ESTERASE,URINE NEGATIVE (NEGATIVE); NITRITE,URINE NEGATIVE (NEGATIVE); PROTEIN,URINE NEGATIVE (NEGATIVE); URINE SPECIFIC GRAVITY 1.012; UROBILINOGEN,URINE NEGATIVE mg/dL (<2.0)
[2017-03-17 22:52] LABS: WBC,URINE 0-1 /HPF
[2017-03-17 22:59] LABS: URINE BARBITURATES SCREEN NEGATIVE; URINE METHADONE SCREEN NEGATIVE; URINE OPIATES LOW NEGATIVE; URINE PHENCYCLIDINE SCREEN NEGATIVE
== END 2017-03-17 23:30 | disposition home or self-care (01) ==
LOC: LC 21:33
PROVIDERS: ATTEND Student in an Organized Health Care Education/Training Program
PROC: 4A1HXCZ Monitoring of Products of Conception, Cardiac Rate, External Approach (ICD-10-PCS; principal; 2017-03-17)
DX: O47.03 False labor before 37 completed weeks of gestation, third trimester (principal); Z3A.32 32 weeks gestation of pregnancy
CPT/HCPCS: 59025; 80307; 81001

== ENCOUNTER 2017-04-05 14:26 | Outpatient (CLI) | payer MEDICAID ==
--- NOTE | 2017-04-05 14:29 | Non Stress Test Report ---
Non Stress Test Datetime Report Generated by CPN: 04/05/2017 14:29 DEMOGRAPHIC EGA NST: 32.2 INDICATION Indication for Study: Ordered by Provider URINE RESULTS Urine Protein, NST: Negative Urine Ketones - NST: Negative Urine Glucose - NST: Negative Urine Blood - NST: Negative MONITORING Monitor Explained: Monitor Explained; Test Explained; Patient Verbalized Understanding Time on Monitor: 03/17/2017 22:00 Time off Monitor: 03/17/2017 23:28 NST Duration: 88 NST INTERVENTIONS NST Interventions: PO Hydration Physician Notified NST: Dr. Fitzpatrick BABY A: [id number] BABY A Movement : Present Contraction Frequency : Rare FHR Baseline : 135 Accelerations : 15X15 Decelerations : None Variability : Moderate 6-25bpm NST Review: Meets Criteria for Reactive NST NST Review and Verified By : LIZZIE HERNANDEZT Results: Reactive NST REPORT Report Trigger: Send Report
[2017-04-05 15:31] LABS: APPEARANCE,URINE CLOUDY; BILIRUBIN,URINE NEGATIVE (NEGATIVE); CALCIUM OXALATE CRYSTALS,URINE TOO NUMEROUS TO CNT /HPF; GLUCOSE, URINE NEGATIVE (NEGATIVE); KETONES,URINE NEGATIVE (NEGATIVE); LEUKOCYTE ESTERASE,URINE NEGATIVE (NEGATIVE); NITRITE,URINE NEGATIVE (NEGATIVE); PROTEIN,URINE 100 mg/dL (NEGATIVE); URINE SPECIFIC GRAVITY 1.033; UROBILINOGEN,URINE NEGATIVE mg/dL (<2.0)
[2017-04-05 15:56] LABS: URINE BARBITURATES SCREEN NEGATIVE; URINE METHADONE SCREEN NEGATIVE; URINE OPIATES LOW NEGATIVE; URINE PHENCYCLIDINE SCREEN NEGATIVE
--- NOTE | 2017-04-05 16:10 | Non Stress Test Report ---
Non Stress Test Datetime Report Generated by CPN: 04/05/2017 16:09 DEMOGRAPHIC EGA NST: 35.0 INDICATION Indication for Study: Other Indication for Study (NST) Other: labor check VITAL SIGNS Temperature - NST: 97.6 Pulse - NST: 102 RESP - NST: 16 NBPSYS NST: 126 NBPDIA NST: 77 MONITORING Monitor Explained: Monitor Explained; Test Explained; Patient Verbalized Understanding Time on Monitor: 04/05/2017 14:49 Time off Monitor: 04/05/2017 15:50 NST Duration: 61 NST INTERVENTIONS NST Interventions: PO Hydration Physician Notified NST: Ailsa Emmel, CNM BABY A Movement : Present Contraction Frequency : 0 FHR Baseline : 130 Accelerations : 15X15 Decelerations : None Variability : Moderate 6-25bpm NST Review: Meets Criteria for Reactive NST NST Review and Verified By : Merle Garg RNC NST REPORT Report Trigger: Send Report
== END 2017-04-05 16:11 | disposition home or self-care (01) ==
LOC: LC 14:26
PROVIDERS: ATTEND Obstetrics & Gynecology Gynecology
PROC: 4A1HXCZ Monitoring of Products of Conception, Cardiac Rate, External Approach (ICD-10-PCS; principal; 2017-04-05)
DX: O34.33 Maternal care for cervical incompetence, third trimester (principal); O09.523 Supervision of elderly multigravida, third trimester; Z3A.35 35 weeks gestation of pregnancy
CPT/HCPCS: 59025; 80307; 81001

== ENCOUNTER 2017-04-08 06:24 | Outpatient (CLI) | payer MEDICAID ==
[2017-04-08 07:13] LABS: APPEARANCE,URINE SLIGHTLY-CLOUDY; BILIRUBIN,URINE NEGATIVE (NEGATIVE); CALCIUM OXALATE CRYSTALS,URINE MANY /HPF; GLUCOSE, URINE NEGATIVE (NEGATIVE); KETONES,URINE NEGATIVE (NEGATIVE); LEUKOCYTE ESTERASE,URINE NEGATIVE (NEGATIVE); NITRITE,URINE NEGATIVE (NEGATIVE); PROTEIN,URINE 100 mg/dL (NEGATIVE); URINE SPECIFIC GRAVITY 1.023; UROBILINOGEN,URINE NEGATIVE mg/dL (<2.0)
[2017-04-08 07:32] LABS: URINE BARBITURATES SCREEN NEGATIVE; URINE METHADONE SCREEN NEGATIVE; URINE OPIATES LOW NEGATIVE; URINE PHENCYCLIDINE SCREEN NEGATIVE
== END 2017-04-08 10:32 | disposition home or self-care (01) ==
LOC: LC 06:24
PROVIDERS: ATTEND Obstetrics & Gynecology
PROC: 4A1HXCZ Monitoring of Products of Conception, Cardiac Rate, External Approach (ICD-10-PCS; principal; 2017-04-08)
DX: O34.33 Maternal care for cervical incompetence, third trimester (principal); O09.521 Supervision of elderly multigravida, first trimester; Z3A.35 35 weeks gestation of pregnancy
CPT/HCPCS: 59025; 80307; 81001

== ENCOUNTER 2017-04-11 11:11 | Outpatient (CLI) | payer MEDICAID ==
[2017-04-11 11:44] LABS: AMORPHOUS SEDIMENT,URINE TRACE /HPF; APPEARANCE,URINE CLOUDY; BILIRUBIN,URINE NEGATIVE (NEGATIVE); GLUCOSE, URINE NEGATIVE (NEGATIVE); KETONES,URINE NEGATIVE (NEGATIVE); LEUKOCYTE ESTERASE,URINE NEGATIVE (NEGATIVE); NITRITE,URINE NEGATIVE (NEGATIVE); PROTEIN,URINE NEGATIVE (NEGATIVE); URINE SPECIFIC GRAVITY 1.013; UROBILINOGEN,URINE NEGATIVE mg/dL (<2.0)
[2017-04-11 11:57] LABS: URINE BARBITURATES SCREEN NEGATIVE; URINE METHADONE SCREEN NEGATIVE; URINE OPIATES LOW NEGATIVE; URINE PHENCYCLIDINE SCREEN NEGATIVE
--- NOTE | 2017-04-11 12:54 | Non Stress Test Report ---
Non Stress Test Datetime Report Generated by CPN: 04/11/2017 12:53 DEMOGRAPHIC EGA NST: 35.6 INDICATION Indication for Study: Decreased Movement MONITORING Monitor Explained: Monitor Explained; Test Explained; Patient Verbalized Understanding Time on Monitor: 04/11/2017 11:35 Time off Monitor: 04/11/2017 12:04 NST Duration: 29 NST INTERVENTIONS NST Interventions: PO Hydration; Reposition Patient Physician Notified NST: DR PHILLIPS REVIEWED STRIP (Annotations: Data stored by [facility] on behalf of user) BABY A: [id number] BABY A Movement : Present Contraction Frequency : irritability FHR Baseline : 140 Accelerations : 15X15 Decelerations : None Variability : Moderate 6-25bpm NST Review: Meets Criteria for Reactive NST NST Review and Verified By : Merle Garg [facility] NST Results: Reactive NST REPORT Report Trigger: Send Report
== END 2017-04-11 12:10 | disposition home or self-care (01) ==
LOC: LC 11:11
PROVIDERS: ATTEND Student in an Organized Health Care Education/Training Program
PROC: 4A1HXCZ Monitoring of Products of Conception, Cardiac Rate, External Approach (ICD-10-PCS; principal; 2017-04-11)
DX: O36.8130 Decreased fetal movements, third trimester, not applicable or unspecified (principal); O09.523 Supervision of elderly multigravida, third trimester; Z3A.35 35 weeks gestation of pregnancy
CPT/HCPCS: 59025; 80307; 81001

== ENCOUNTER 2017-04-11 18:32 | Outpatient (CLI) | payer MEDICAID ==
[2017-04-11 19:24] LABS: AMNISURE (ROM) NEGATIVE (NEGATIVE)
--- NOTE | 2017-04-11 21:05 | RADIOLOGY REPORT (SQ) ---
EXAM DESCRIPTION: U/S OB LIMITED COMPLETED DATE/TIME: 04/11/2017 8:32 pm REASON FOR STUDY: MVP, KENA, presentation COMPARISON: None. TECHNIQUE: Limited transabdominal grayscale ultrasound for evaluation of specific requested obstetri segundo parameters. LIMITATIONS: None. FINDINGS: CERVICAL LENGTH: 4.1 cm Closed. KENA: 13.5 cm MVP: 5.4 cm. FHR: 135 beats per minute. PRESENTATION: Cephalic. OTHER: No other significant findings. IMPRESSION: LIMITED OBSTETRICAL ULTRASOUND WITH MEASURED PARAMETERS DELINEATED ABOVE. Trimester of : Third trimester - 28 weeks to delivery. TECHNICAL DOCUMENTATION: JOB ID: [id number] [employer]- All Rights Reserved
--- NOTE | 2017-04-11 21:12 | Non Stress Test Report ---
Non Stress Test Datetime Report Generated by CPN: 04/11/2017 21:12 DEMOGRAPHIC EGA NST: 35.6 INDICATION Indication for Study: Ordered by Provider MONITORING Monitor Explained: Monitor Explained; Test Explained; Patient Verbalized Understanding Time on Monitor: 04/11/2017 19:03 Time off Monitor: 04/11/2017 19:37 NST Duration: 34 NST INTERVENTIONS NST Interventions: PO Hydration; Reposition Patient Physician Notified NST: Dr. Fitzpatrick BABY A: [id number] BABY A Movement : Present Contraction Frequency : x1 with irritability FHR Baseline : 125 Accelerations : 15X15 Decelerations : None Variability : Moderate 6-25bpm NST Review: Meets Criteria for Reactive NST NST Review and Verified By : Pooja Mc RN NST Results: Reactive NST REPORT Report Trigger: Send Report
== END 2017-04-11 21:17 | disposition home or self-care (01) ==
LOC: LC 18:32
PROVIDERS: ATTEND Student in an Organized Health Care Education/Training Program
PROC: 4A1HXCZ Monitoring of Products of Conception, Cardiac Rate, External Approach (ICD-10-PCS; principal; 2017-04-11)
DX: O36.8130 Decreased fetal movements, third trimester, not applicable or unspecified (principal); O47.03 False labor before 37 completed weeks of gestation, third trimester; O09.523 Supervision of elderly multigravida, third trimester; Z3A.35 35 weeks gestation of pregnancy
CPT/HCPCS: 59025; 76815; 84112; 87081

== ENCOUNTER 2017-04-19 15:19 | Outpatient (CLI) | payer MEDICAID ==
[2017-04-19 15:59] LABS: APPEARANCE,URINE SLIGHTLY-CLOUDY; BILIRUBIN,URINE NEGATIVE (NEGATIVE); CALCIUM OXALATE CRYSTALS,URINE MODERATE /HPF; COLOR,URINE YELLOW; GLUCOSE, URINE NEGATIVE (NEGATIVE); KETONES,URINE NEGATIVE (NEGATIVE); LEUKOCYTE ESTERASE,URINE NEGATIVE (NEGATIVE); NITRITE,URINE NEGATIVE (NEGATIVE); PROTEIN,URINE 100 mg/dL (NEGATIVE); URINE SPECIFIC GRAVITY 1.026; UROBILINOGEN,URINE NEGATIVE mg/dL (<2.0)
[2017-04-19 16:01] LABS: AMNISURE (ROM) NEGATIVE (NEGATIVE)
[2017-04-19 16:08] LABS: URINE AMPHETAMINES SCREEN NEGATIVE; URINE BARBITURATES SCREEN NEGATIVE; URINE BENZODIAZEPINES SCREEN NEGATIVE; URINE COCAINE SCREEN NEGATIVE; URINE MARIJUANA (THC) SCREEN NEGATIVE; URINE METHADONE SCREEN NEGATIVE; URINE PHENCYCLIDINE SCREEN NEGATIVE
== END 2017-04-19 16:30 | disposition home or self-care (01) ==
LOC: LC 15:19
PROVIDERS: ATTEND Student in an Organized Health Care Education/Training Program
PROC: 4A1HXCZ Monitoring of Products of Conception, Cardiac Rate, External Approach (ICD-10-PCS; principal; 2017-04-19)
DX: O47.1 False labor at or after 37 completed weeks of gestation (principal); Z3A.37 37 weeks gestation of pregnancy
CPT/HCPCS: 59025; 84112; 36415; 81001; 80307; G6056; 80361

== ENCOUNTER 2017-04-23 20:53 | Outpatient (CLI) | payer MEDICAID ==
[2017-04-23 22:03] LABS: APPEARANCE,URINE CLOUDY; BILIRUBIN,URINE NEGATIVE (NEGATIVE); COLOR,URINE YELLOW; GLUCOSE, URINE NEGATIVE (NEGATIVE); KETONES,URINE NEGATIVE (NEGATIVE); LEUKOCYTE ESTERASE,URINE NEGATIVE (NEGATIVE); NITRITE,URINE NEGATIVE (NEGATIVE); PROTEIN,URINE 30 mg/dL (NEGATIVE); URINE SPECIFIC GRAVITY 1.023; UROBILINOGEN,URINE NEGATIVE mg/dL (<2.0)
--- NOTE | 2017-04-23 22:13 | Non Stress Test Report ---
Non Stress Test Datetime Report Generated by CPN: 04/23/2017 22:13 DEMOGRAPHIC EGA NST: 37.4 INDICATION Indication for Study: Other Indication for Study (NST) Other: labor check MONITORING Monitor Explained: Monitor Explained; Test Explained; Patient Verbalized Understanding Time on Monitor: 04/23/2017 21:15 NST INTERVENTIONS NST Interventions: PO Hydration BABY A: [id number] BABY A Movement : Present Accelerations : 15X15 Decelerations : None Variability : Moderate 6-25bpm NST Review: Meets Criteria for Reactive NST NST Review and Verified By : rn kossmann NST Results: Reactive NST REPORT Report Trigger: Send Report
[2017-04-23 22:17] LABS: URINE AMPHETAMINES SCREEN NEGATIVE; URINE BARBITURATES SCREEN NEGATIVE; URINE BENZODIAZEPINES SCREEN NEGATIVE; URINE COCAINE SCREEN NEGATIVE; URINE MARIJUANA (THC) SCREEN NEGATIVE; URINE METHADONE SCREEN NEGATIVE; URINE PHENCYCLIDINE SCREEN NEGATIVE
== END 2017-04-23 22:27 | disposition home or self-care (01) ==
LOC: LC 20:53
PROVIDERS: ATTEND Obstetrics & Gynecology
PROC: 4A1HXCZ Monitoring of Products of Conception, Cardiac Rate, External Approach (ICD-10-PCS; principal; 2017-04-23)
DX: O47.1 False labor at or after 37 completed weeks of gestation (principal); O09.523 Supervision of elderly multigravida, third trimester; Z3A.37 37 weeks gestation of pregnancy
CPT/HCPCS: 59025; 80307; 81005

== ENCOUNTER 2017-04-27 02:41 | Outpatient (CLI) | payer MEDICAID ==
[2017-04-27 03:48] LABS: APPEARANCE,URINE SLIGHTLY-CLOUDY; BILIRUBIN,URINE NEGATIVE (NEGATIVE); COLOR,URINE YELLOW; GLUCOSE, URINE NEGATIVE (NEGATIVE); KETONES,URINE NEGATIVE (NEGATIVE); LEUKOCYTE ESTERASE,URINE NEGATIVE (NEGATIVE); NITRITE,URINE NEGATIVE (NEGATIVE); PROTEIN,URINE NEGATIVE (NEGATIVE); URINE SPECIFIC GRAVITY 1.009; UROBILINOGEN,URINE NEGATIVE mg/dL (<2.0)
--- NOTE | 2017-04-27 04:17 | Non Stress Test Report ---
Non Stress Test Datetime Report Generated by CPN: 04/27/2017 04:16 DEMOGRAPHIC Test Number: 5 EGA NST: 38.1 INDICATION Indication for Study: Other Indication for Study (NST) Other: labor check MONITORING Monitor Explained: Monitor Explained; Test Explained; Patient Verbalized Understanding Time on Monitor: 04/27/2017 03:00 Time off Monitor: 04/27/2017 04:12 NST Duration: 72 NST INTERVENTIONS NST Interventions: PO Hydration Physician Notified NST: Dr. Fitzpatrick BABY A: [id number] BABY A Movement : Present Contraction Frequency : 1-5 FHR Baseline : 125 Accelerations : 15X15 Decelerations : None Variability : Moderate 6-25bpm NST Review: Meets Criteria for Reactive NST NST Review and Verified By : Arnie Kam RN NSRikki Results: Reactive NST REPORT Report Trigger: Send Report
[2017-04-27 04:22] LABS: URINE AMPHETAMINES SCREEN NEGATIVE; URINE BARBITURATES SCREEN NEGATIVE; URINE BENZODIAZEPINES SCREEN NEGATIVE; URINE COCAINE SCREEN NEGATIVE; URINE MARIJUANA (THC) SCREEN NEGATIVE; URINE METHADONE SCREEN NEGATIVE; URINE PHENCYCLIDINE SCREEN NEGATIVE
== END 2017-04-27 04:29 | disposition home or self-care (01) ==
LOC: LC 02:41
PROVIDERS: ATTEND Student in an Organized Health Care Education/Training Program
PROC: 4A1HXCZ Monitoring of Products of Conception, Cardiac Rate, External Approach (ICD-10-PCS; principal; 2017-04-27)
DX: O47.03 False labor before 37 completed weeks of gestation, third trimester (principal); Z3A.38 38 weeks gestation of pregnancy
CPT/HCPCS: 80307; 81001

== ENCOUNTER 2017-05-06 15:44 | Outpatient (CLI) | payer MEDICAID ==
[2017-05-06 17:08] LABS: APPEARANCE,URINE CLOUDY; BILIRUBIN,URINE NEGATIVE (NEGATIVE); COLOR,URINE YELLOW; GLUCOSE, URINE >=500 mg/dL (NEGATIVE); KETONES,URINE TRACE mg/dL (NEGATIVE); LEUKOCYTE ESTERASE,URINE NEGATIVE (NEGATIVE); NITRITE,URINE NEGATIVE (NEGATIVE); PROTEIN,URINE 30 mg/dL (NEGATIVE); URINE SPECIFIC GRAVITY 1.018; UROBILINOGEN,URINE NEGATIVE mg/dL (<2.0)
[2017-05-06 17:23] LABS: URINE AMPHETAMINES SCREEN NEGATIVE; URINE BARBITURATES SCREEN NEGATIVE; URINE BENZODIAZEPINES SCREEN NEGATIVE; URINE COCAINE SCREEN NEGATIVE; URINE MARIJUANA (THC) SCREEN NEGATIVE; URINE METHADONE SCREEN NEGATIVE; URINE PHENCYCLIDINE SCREEN NEGATIVE
== END 2017-05-06 18:06 | disposition home or self-care (01) ==
LOC: LC 15:44
PROVIDERS: ATTEND Obstetrics & Gynecology
PROC: 4A1HXCZ Monitoring of Products of Conception, Cardiac Rate, External Approach (ICD-10-PCS; principal; 2017-05-06)
DX: O47.1 False labor at or after 37 completed weeks of gestation (principal); Z3A.39 39 weeks gestation of pregnancy
CPT/HCPCS: 59025; 80307; 81005

== ENCOUNTER 2017-05-10 02:48 | Outpatient (CLI) | payer MEDICAID ==
[2017-05-10 03:32] LABS: APPEARANCE,URINE CLEAR; BILIRUBIN,URINE NEGATIVE (NEGATIVE); COLOR,URINE STRAW; GLUCOSE, URINE NEGATIVE (NEGATIVE); KETONES,URINE NEGATIVE (NEGATIVE); LEUKOCYTE ESTERASE,URINE NEGATIVE (NEGATIVE); NITRITE,URINE NEGATIVE (NEGATIVE); PROTEIN,URINE NEGATIVE (NEGATIVE); URINE SPECIFIC GRAVITY 1.005; UROBILINOGEN,URINE NEGATIVE mg/dL (<2.0)
[2017-05-10 03:50] LABS: URINE AMPHETAMINES SCREEN NEGATIVE; URINE BARBITURATES SCREEN NEGATIVE; URINE BENZODIAZEPINES SCREEN NEGATIVE; URINE COCAINE SCREEN NEGATIVE; URINE MARIJUANA (THC) SCREEN NEGATIVE; URINE METHADONE SCREEN NEGATIVE; URINE PHENCYCLIDINE SCREEN NEGATIVE
--- NOTE | 2017-05-10 05:16 | Non Stress Test Report ---
Non Stress Test Datetime Report Generated by CPN: 05/10/2017 05:16 DEMOGRAPHIC Test Number: 5 EGA NST: 40.0 EGA NST: 39.3 INDICATION Indication for Study: Ordered by Provider Indication for Study: Ordered by Provider MONITORING Monitor Explained: Monitor Explained; Test Explained; Patient Verbalized Understanding Monitor Explained: Monitor Explained; Test Explained; Patient Verbalized Understanding Time on Monitor: 05/10/2017 03:07 Time on Monitor: 05/06/2017 16:05 Time off Monitor: 05/10/2017 05:08 NST Duration: 121 NST INTERVENTIONS NST Interventions: PO Hydration; Reposition Patient NST Interventions: PO Hydration; Reposition Patient Physician Notified NST: Dr. Hayward Physician Notified NST: Dr. Camelia Mas BABY A: [id number] BABY A Movement : Present Movement : Present Contraction Frequency : 1-6 Contraction Frequency : rare with irritability FHR Baseline : 125 FHR Baseline : 135 Accelerations : 15X15 Accelerations : 15X15 Decelerations : Variable Decelerations : None Variability : Moderate 6-25bpm Variability : Moderate 6-25bpm NST Review: Meets Criteria for Reactive NST NST Review: Meets Criteria for Reactive NST NST Review and Verified By : Bailee URIARTE Results: Reactive NST Results: Reactive NST REPORT Report Trigger: Send Report
== END 2017-05-10 05:17 | disposition home or self-care (01) ==
LOC: LC 02:48
PROVIDERS: ATTEND Obstetrics & Gynecology Gynecology
PROC: 4A1HXCZ Monitoring of Products of Conception, Cardiac Rate, External Approach (ICD-10-PCS; principal; 2017-05-10)
DX: O47.1 False labor at or after 37 completed weeks of gestation (principal); Z3A.40 40 weeks gestation of pregnancy
CPT/HCPCS: 59025; 80307; 81005

== ENCOUNTER 2017-05-12 06:20 | Inpatient (IN) | payer MEDICAID ==
[2017-05-12] MEDS: OXYTOCIN/NORMAL SALINE 20 UNIT/1,000 ML RTUINJ IV PRN ×2 (06:32→08:22)
[2017-05-12] MEDS ORDERED: RINGERS SOLUTION,LACTATED 300 ML IV ONE (06:32)
[2017-05-12 07:11] LABS: APPEARANCE,URINE CLOUDY; BILIRUBIN,URINE NEGATIVE (NEGATIVE); GLUCOSE, URINE 50 mg/dL (NEGATIVE); KETONES,URINE NEGATIVE (NEGATIVE); LEUKOCYTE ESTERASE,URINE NEGATIVE (NEGATIVE); NITRITE,URINE NEGATIVE (NEGATIVE); PROTEIN,URINE 100 mg/dL (NEGATIVE); URINE SPECIFIC GRAVITY 1.024; UROBILINOGEN,URINE NEGATIVE mg/dL (<2.0)
[2017-05-12 07:13] LABS: COLOR,URINE YELLOW
[2017-05-12 07:17] LABS: ABSOLUTE EOSINOPHILS # (AUTO) 0.1 10^3/uL (0.0-0.6); ABSOLUTE LYMPHOCYTES (AUTO) 1.2 10^3/uL (0.5-4.7); ABSOLUTE NEUT (AUTO) 7.7 10^3/uL (1.7-8.2); BASOPHILS % (AUTO) 0.2 % (0-2); EOSINOPHILS % (AUTO) 1.3 % (0-6); HEMATOCRIT 36.7 % (36.0-47.0); HEMOGLOBIN 12.8 g/dL (12.0-15.5); LYMPHOCYTES % (AUTO) 12.2 % (13-45); MEAN CORPUSCULAR HEMOGLOBIN 33.4 pg (27.0-33.4); MEAN CORPUSCULAR HGB CONC 34.8 g/dL (32.0-36.0); MEAN CORPUSCULAR VOLUME 96 fl (80-97); MONOCYTES % (AUTO) 9.9 % (3-13); PLATELET COUNT 252 10^3/uL (150-450); RED BLOOD COUNT 3.82 10^6/uL (3.72-5.28); RED CELL DISTRIBUTION WIDTH 13.5 % (11.5-14.0); SEGMENTED NEUTROPHILS % (AUTO) 76.4 % (42-78); TOTAL CELLS COUNTED % (AUTO) 100 %; WHITE BLOOD COUNT 10.1 10^3/uL (4.0-10.5)
[2017-05-12 07:33] LABS: URINE AMPHETAMINES SCREEN NEGATIVE; URINE BARBITURATES SCREEN NEGATIVE; URINE BENZODIAZEPINES SCREEN NEGATIVE; URINE COCAINE SCREEN NEGATIVE; URINE MARIJUANA (THC) SCREEN NEGATIVE; URINE METHADONE SCREEN NEGATIVE; URINE PHENCYCLIDINE SCREEN NEGATIVE
[2017-05-12] MEDS ORDERED: OXYTOCIN/NORMAL SALINE 20 UNIT/1,000 ML RTUINJ ONE (08:13)
[2017-05-12] MEDS: RINGERS SOLUTION,LACTATED 1,000 ML IV PRN ×2 (08:22→10:00)
[2017-05-12] MEDS ORDERED: MISOPROSTOL 0.2 MG TABLET ONE (08:55)
[2017-05-12] MEDS ORDERED: LIDOCAINE 1% INJ-PF (10 MG/ML) 30 ML SDV ONE (08:56)
--- NOTE | 2017-05-12 10:39 | L&D Progress Notes ---
PROGRESS NOTES Datetime Report Generated by CPN: 05/12/2017 10:39 PROGRESS NOTE Plan: Continue Present Management; Induction Informed Consent Obtained: Vaginal Delivery Vital Signs : Reviewed; Within Normal Limits Comment: Doing well, Cat 1, uc's q 3 min, tolerating labor well, does not want epidural because she had a headache after her cerclage spinal. will get Nubain if needed VAGINAL EXAM Dilatation: 2 Dilatation: 0 Effacement: 50 Effacement: 100 Station: -2 Station: -3 MEMBRANES Pooling: Negative Membranes: Intact Membranes: Intact FETUS A FHR - Baseline: 120 Monitoring: External US Variability: Moderate 6-25bpm Accelerations: 15X15 Decelerations: None : 40.2 : 35.0 Estimated Weight (gm): 3300 Presentation: Vertex SIGNATURE SIGNATURE: 14,[id number];10,[id number] SIGNATURE: 10,[id number];14,[id number] SIGNATURE: 14,[id number];10,[id number] SIGNATURE: 10,5597128926;14,[id number] SIGNATURE: 14,4824772207;10,[id number] SIGNATURE: 10,[id number];14,[id number] SIGNATURE: 14,[id number];10,[id number] Assignment: Fabio Hayward MD Signature: with User ID: [email or web address] : with User ID: [email or web address]
--- NOTE | 2017-05-12 12:36 | L&D Progress Notes ---
PROGRESS NOTES Datetime Report Generated by CPN: 05/12/2017 12:35 PROGRESS NOTE Vital Signs : Reviewed; Within Normal Limits Comment: irreg uc's, Cat 1 strip FETUS A FHR - Baseline: 120 Monitoring: External US Variability: Moderate 6-25bpm Accelerations: 15X15 Decelerations: None FETUS C SIGNATURE: 14,[id number];10,[id number] SIGNATURE: 10,[id number];14,[id number] Assignment: Fabio Hayward MD Signature: with User ID: Virgie : with User ID: [email or web address]
--- NOTE | 2017-05-12 14:31 | L&D Progress Notes ---
PROGRESS NOTES Datetime Report Generated by CPN: 05/12/2017 14:31 PROGRESS NOTE Impression: Reassuring Heart Rate Plan: Continue Present Management; Induction Vital Signs : Reviewed; Within Normal Limits Comment: Cat 1 strip, uc's q 2-3 FETUS C SIGNATURE: 10,[id number];14,[id number] Assignment: Fabio Hayward MD Signature: with User ID: [email or web address] : with User ID: [email or web address]
[2017-05-12] MEDS: DINOPROSTONE 10 MG VAGINAL INSERT.SR PV PRN ×2 (16:11→19:46)
--- NOTE | 2017-05-12 16:33 | L&D Progress Notes ---
PROGRESS NOTES Datetime Report Generated by CPN: 05/12/2017 16:33 PROGRESS NOTE Impression: Reassuring Heart Rate Procedures: Sterile Vag Exam Plan: Cervical Ripening Vital Signs : Reviewed; Within Normal Limits Comment: Cat 1 strip, uc's q 2-3, mild to palpation, pt's only c/o is back pain, ve = 1-2/80/vtx, -1 POC discussed with pt and Dr. Hayward, stop Pitocin, eat, walk, then cervidil, hsb at , questions answered FETUS C SIGNATURE: 14,[id number];10,[id number] Assignment: Fabio Hayward MD Signature: with User ID: [email or web address] : with User ID: [email or web address]
[2017-05-12] MEDS ORDERED: DINOPROSTONE 10 MG VAGINAL INSERT.SR ONE (19:45)
--- NOTE | 2017-05-13 08:15 | L&D Progress Notes ---
PROGRESS NOTES Datetime Report Generated by CPN: 05/13/2017 08:15 PROGRESS NOTE Impression: Reassuring Heart Rate Impression Other: IOL postdates. Procedures: Artificial ROM; Intrauterine Pressure Catheter; Scalp Electrode; Sterile Vag Exam Plan: Induction Comment: Induction of labor at 40+ weeks. arom clear fluid moderate to large amount. IUPC and FSE placed. Plan on pitocin to titrate to adequate MVUs. VAGINAL EXAM Dilatation: 3 Effacement: 60 Station: -3 MEMBRANES Pooling: Positive Membranes: Ruptured Amniotic Fluid Color: Clear FETUS A FHR - Baseline: 130 Variability: Moderate 6-25bpm Accelerations: 15X15 Decelerations: None FHR Comments: reassuring tracing FETUS C SIGNATURE: 10,[id number];14,[id number] Signature: with User ID: [email or web address]
[2017-05-13] MEDS ORDERED: NALBUPHINE HCL INJ 10 MG/1 ML AMPULE ONE (08:38)
[2017-05-13] MEDS ORDERED: NALBUPHINE HCL INJ 10 MG/1 ML AMPULE INJ ONE (09:03)
[2017-05-13] MEDS ORDERED: EPHEDRINE SULFATE INJ 50 MG/1 ML AMPULE ONE ×2 (10:18→14:49)
[2017-05-13] MEDS ORDERED: BUPIVACAINE HCL 0.25 % INJ/PF (2.5 MG/1 ML) 30 ML VIAL ONE (10:18)
[2017-05-13] MEDS ORDERED: FENTANYL/BUPIVACAINE/NS/PF 200 MCG/100 ML RTUINJ EPI ONE (10:18)
--- NOTE | 2017-05-13 14:28 | L&D Progress Notes ---
PROGRESS NOTES Datetime Report Generated by SANDRA: 05/13/2017 14:28 Impression: Arrest of Dilatation/Descent; Reassuring Heart Rate Procedures: Artificial ROM; Intrauterine Pressure Catheter; Scalp Electrode; Sterile Vag Exam Plan: Deliver- Section Informed Consent Obtained: Section Delivery Comment: IUp at 40 weeks. Arrest of dilation. concern for cephalopelvic disproportion. head not engaged in to inlet. plan on C section. Discussed risks benefits alternatives of C section with patient. Preop-ancef 2gm Dilatation: 4 Effacement: 80 Station: -3 Contractions: regular adequate. FHR - Baseline: 120 Variability: Moderate 6-25bpm Accelerations: 15X15 Decelerations: Early; Variable FHR Category: Category I FHR Comments: down to 90s at time of contractions Signature: with User ID: [email or web address]
[2017-05-13] MEDS ORDERED: CITRIC ACID/SODIUM CITRATE ORAL SOLN 15 ML UDCUP ONE ×2 (14:29→14:31)
[2017-05-13] MEDS ORDERED: CEFAZOLIN 2 GM/D5W RTU 2 GM/50 ML RTUPB IV ONE (14:29)
[2017-05-13] MEDS ORDERED: LIDOCAINE 2% INJ-PF (20 MG/ML) 10 ML AMPUL ONE (14:31)
[2017-05-13] MEDS ORDERED: CEFAZOLIN 1 GM/D5W RTU 1 GM/50 ML RTUPB IV ONE (14:32)
[2017-05-13] MEDS ORDERED: OXYCODONE-ACETAMINOPHEN 5-325 MG TABLET PO PRN (14:48)
[2017-05-13] MEDS ORDERED: MORPHINE SULFATE 10 MG/ML INJ IM PRN (14:48)
[2017-05-13] MEDS ORDERED: PROMETHAZINE HCL INJ 25 MG/1 ML VIAL IV PRN (14:48)
[2017-05-13] MEDS ORDERED: MEASLES,MUMPS&RUBELLA VACC/PF 0.5 ML VIAL SUBCUT PRN (14:48)
[2017-05-13] MEDS ORDERED: OXYTOCIN 10 UNIT/ML VIAL ONE (14:48)
[2017-05-13] MEDS ORDERED: ACETAMINOPHEN 325 MG TABLET PO PRN (14:48)
[2017-05-13] MEDS ORDERED: OXYTOCIN/NORMAL SALINE 20 UNIT/1,000 ML RTUINJ IV PRN (14:48)
[2017-05-13] MEDS ORDERED: SIMETHICONE 80 MG TAB.CHEW PO PRN (14:48)
[2017-05-13] MEDS ORDERED: DIPH/PERTUSS(ACELL)/TETANUS VAC/PF 0.5 ML SYR (>=10YO) IM PRN (14:48)
[2017-05-13] MEDS ORDERED: OXYTOCIN/NORMAL SALINE 20 UNIT/1,000 ML RTUINJ ONE (14:49)
[2017-05-13] MEDS ORDERED: MIDAZOLAM 2 MG/2 ML INJ ONE (14:49)
[2017-05-13] MEDS ORDERED: FENTANYL CITRATE INJ/PF 100 MCG/2 ML AMPUL ONE ×2 (14:49→16:07)
[2017-05-13] MEDS ORDERED: DIPHENHYDRAMINE HCL 50 MG/ML VIAL ONE (14:50)
[2017-05-13] MEDS ORDERED: ACETAMINOPHEN 100 ML IV ONE (14:50)
[2017-05-13] MEDS ORDERED: ONDANSETRON HCL INJ/PF 4 MG/2 ML SDV ONE ×2 (14:50→15:26)
[2017-05-13 15:34] LABS: ARTERIAL BLOOD BASE EXCESS -3.3 mmol/L; ARTERIAL BLOOD H2CO3 1.62 mmol/L (1.05-1.35); ARTERIAL BLOOD HCO3 24.3 mmol/L (20-26); ARTERIAL BLOOD O2 SATURATION 24.7 % (94-98); ARTERIAL BLOOD PCO2 53.9 mmHg (35-45); ARTERIAL BLOOD PH 7.27 (7.35-7.45)
[2017-05-13 15:35] LABS: ARTERIAL BLOOD FIO2 CORD BLOOD; ARTERIAL BLOOD PO2 19.4 mmHg (80-100)
[2017-05-13] MEDS ORDERED: ONDANSETRON HCL INJ/PF 4 MG/2 ML SDV IV PRN (15:38)
[2017-05-13] MEDS ORDERED: DIPHENHYDRAMINE HCL 25 MG CAPSULE PO PRN (15:38)
[2017-05-13] MEDS ORDERED: ONDANSETRON HCL PO PRN (15:38)
--- NOTE | 2017-05-13 15:57 | Operative Report ---
Operative Report DATE OF SURGERY: 05/13/17 Operative Report: PRIMARY LOW TRANSVERSE SECTION VIA PFANNENSTIEL SKIN INCISION PREOPERATIVE DIAGNOSIS: Intrauterine at 40 weeks 3 days. Failed induction of labor. Arrest of dilation. Suspected cephalopelvic disproportion POSTOPERATIVE DIAGNOSIS: Intrauterine at 40 weeks 3 days. Failed induction of labor. Arrest of dilation. Suspected cephalopelvic disproportion OPERATION: PRIMARY LOW TRANSVERSE SECTION VIA PFANNENSTIEL SKIN INCISION SURGEON: MAGDALENA SEAMAN 1ST EVALUATOR: KRISTOPHER MORROW 2ND Talent Management Manager: CARLITA BECKER ANESTHESIA: Spinal TISSUE REMOVED OR ALTERED: pH, Cord blood, Placenta COMPLICATIONS: NONE ESTIMATED BLOOD LOSS: 500 ML INTRAOPERATIVE FINDINGS: Normal appearing uterus, bilateral ovaries and fallopian tubes. Viable female . Apgars of 9 at one minute and 9 at five minutes. Infant weight: 7 lbs 10 oz. PROCEDURE: Patient presented to labor and delivery at 40+ weeks for elective induction of labor. She had a cerclage during this and had that removed from previous visit. She had induction started with cervidil and pitocin. She then transitioned to have artificial rupture of membranes with placement of IUPC and FSE. Pitocin was then used to titrate contractions to adequate MVUs. She progressed to 4 cm dilation but on exam was noted to have no engagement of the head to pelvis and deep early decelerations. After assessment of pelvis, discussion with patient for primary section due to failure to dilate and suspected cephalopelvic disproportion. Reviewed risks benefits alternatives of procedure. Patient was taking the the operating room and epidural anesthesia was dosed for appropriate level. She then receive 1 gram Ancef prior to incision along with placement of corcoran catheter and sequential compression devices on extremities. Her abdomen was then prepped with Chlora-prep and she was steriley drapped. Time -out procedure was then performed and all parties were in agreement. At this point, a low transverse skin incision was made in Pfannenstiel fashion. The incision was carried down to the underlying fascial incision. Fascia was nicked in the midline and then extended laterally bilaterally with Ayala scissors. The superior portion of the fascial incision was grasped with Bret clamps and the underlying rectus muscles were dissected off bluntly and sharply. This was done in similar fashion to lower fascial incision. The rectus muscles were divided in the midline and the peritoneum entered digitally and bluntly. This was extended superiorly and inferiorly to allow for placement of a bladder blade. A bladder flap was developed using Metzenbaum scissors and the bladder blade inserted above the bladder flap. Scalpel was then used to make a low transverse hysterotomy with clear amniotic fluid noted. Infant head was delivered with nuchal cord x 1 noted. The rest of the delivered. The umbilical cord was doubly clamped and cut and the handed off to NICU staff. Apgars were 9 at one minute and 9 at five minutes. pH and Cord blood samples were then taken from umbilical cord prior to extraction of the placenta from the uterus. The uterus was exteriorized and cleared of all clots and debris. The hysterotomy closed using 0-Vicryl suture on a CT-X needle in a running-locked fashion. A second imbricating layer using 0-Vicryl on CT-X was also performed to achieve hemostasis. The posterior cul-de-sac cleared of all clots and debris. The uterus was returned to the abdomen. The bilateral gutters cleared. Inspection of the bladder and fascia incision was noted to be intact. Surgicell placed above the hysterotomy to help achieve further hemostasis. The fascial incision was then closed using 0-Vicryl on a running fashion. The subcutaneous layer was copiously irrigated. Any signs of bleeding were Bovie cauterized. The subcutaneous layer reapproximated using 3-0 Vicryl in a running fashion. The skin was then closed using 4-0 Monocryl in a sub-cuticular fashion. Dermabond placed above this along with clean bandage dressing. At this point the procedure was deemed complete. All sponge counts, lap counts, instruments, and needles were correct x 2. She tolerated the procedure well and was taken to recovery in stable condition.
--- NOTE | 2017-05-13 17:33 | Admission Physical ---
Datetime Report Generated by CPN: 05/13/2017 17:33 CURRENT ADMISSION Chief Complaint: Scheduled Induction of Labor Chief Complaint: Uterine Contractions; Other Chief Complaint Other: Cerclage in place. H/o delivery. Suspected PROM - negative Amnisure Indication for Induction: Postterm Indication for Induction: Not Applicable Indication for Induction: Term, Intrauterine ; Induction of Labor Indication for Induction: , Intrauterine ; No Active Labor; Intact Membranes; Observation/Evaluation Admit Plan: Admit to Unit; Initiate Labor Induction Protocol Admit Plan: Admit to Unit; Observation/Evaluation ALLERGIES Medication Allergies: Yes Medication Allergies: promethazine HCl/AL/Vomiting (05/12/2017); hydromorphone HCl/SV/Hives/Itching (05/12/2017); hydrocodone bitartrate/MO/Hives/Itching (05/12/2017); Soap/AL/Rash/Itching (05/12/2017); tramadol HCl/MO/Vomiting (05/12/2017); donepezil HCl/MO/Itching (05/12/2017); butalbital/SV/Hives/Itching (05/12/2017); hydrocodone/VOMITING, hives (05/12/2017); aspirin/MO/Hives/Itching (05/12/2017); ibuprofen/SV/Hives (05/12/2017); povidone-iodine/Hives/Itching (05/12/2017); meloxicam/AL/Itching (05/12/2017); latex/SV/Rash/Itching (05/12/2017); shellfish derived/SV/Hives/Itching (05/12/2017) Medication Allergies: promethazine HCl/AL/Vomiting (05/10/2017); hydromorphone HCl/SV/Hives/Itching (05/10/2017); hydrocodone bitartrate/MO/Hives/Itching (05/10/2017); Soap/AL/Rash/Itching (05/10/2017); tramadol HCl/MO/Vomiting (05/10/2017); donepezil HCl/MO/Itching (05/10/2017); butalbital/SV/Hives/Itching (05/10/2017); hydrocodone/VOMITING, hives (05/10/2017); aspirin/MO/Hives/Itching (05/10/2017); ibuprofen/SV/Hives (05/10/2017); povidone-iodine/Hives/Itching (05/10/2017); meloxicam/AL/Itching (05/10/2017); latex/SV/Rash/Itching (05/10/2017); shellfish derived/SV/Hives/Itching (05/10/2017) Medication Allergies: promethazine HCl/AL/Vomiting (04/23/2017); hydromorphone HCl/SV/Hives/Itching (04/23/2017); hydrocodone bitartrate/MO/Hives/Itching (04/23/2017); Soap/AL/Rash/Itching (04/23/2017); tramadol HCl/MO/Vomiting (04/23/2017); donepezil HCl/MO/Itching (04/23/2017); butalbital/SV/Hives/Itching (04/23/2017); hydrocodone/VOMITING, hives (04/23/2017); aspirin/MO/Hives/Itching (04/23/2017); ibuprofen/SV/Hives (04/23/2017); povidone-iodine/Hives/Itching (04/23/2017); meloxicam/AL/Itching (04/23/2017); latex/SV/Rash/Itching (04/23/2017); shellfish derived/SV/Hives/Itching (04/23/2017) Medication Allergies: promethazine HCl/AL/Vomiting (04/11/2017); hydromorphone HCl/SV/Hives/Itching (04/11/2017); hydrocodone bitartrate/MO/Hives/Itching (04/11/2017); Soap/AL/Rash/Itching (04/11/2017); tramadol HCl/MO/Vomiting (04/11/2017); donepezil HCl/MO/Itching (04/11/2017); butalbital/SV/Hives/Itching (04/11/2017); hydrocodone/VOMITING, hives (04/11/2017); aspirin/MO/Hives/Itching (04/11/2017); ibuprofen/SV/Hives (04/11/2017); povidone-iodine/Hives/Itching (04/11/2017); meloxicam/AL/Itching (04/11/2017); latex/SV/Rash/Itching (04/11/2017); shellfish derived/SV/Hives/Itching (04/11/2017) Medication Allergies: promethazine HCl/AL/Vomiting (04/08/2017); hydromorphone HCl/SV/Hives/Itching (04/08/2017); hydrocodone bitartrate/MO/Hives/Itching (04/08/2017); Soap/AL/Rash/Itching (04/08/2017); tramadol HCl/MO/Vomiting (04/08/2017); donepezil HCl/MO/Itching (04/08/2017); butalbital/SV/Hives/Itching (04/08/2017); hydrocodone/VOMITING, hives (04/08/2017); aspirin/MO/Hives/Itching (04/08/2017); ibuprofen/SV/Hives (04/08/2017); povidone-iodine/Hives/Itching (04/08/2017); meloxicam/AL/Itching (04/08/2017); latex/SV/Rash/Itching (04/08/2017); shellfish derived/SV/Hives/Itching (04/08/2017) Medication Allergies: promethazine HCl/AL/Vomiting (04/08/2017); hydromorphone HCl/SV/Hives/Itching (04/08/2017); hydrocodone bitartrate/MO/Hives/Itching (04/08/2017); Soap/AL/Rash/Itching (04/08/2017); tramadol HCl/MO/Vomiting (04/08/2017); donepezil HCl/MO/Itching (04/08/2017); butalbital/SV/Hives/Itching (03/13/2017); hydrocodone/VOMITING, hives (04/08/2017); aspirin/MO/Hives/Itching (04/08/2017); ibuprofen/SV/Hives (03/13/2017); povidone-iodine/Hives/Itching (04/08/2017); meloxicam/AL/Itching (04/08/2017); latex/SV/Rash/Itching (03/13/2017); shellfish derived/SV/Hives/Itching (03/13/2017) Medication Allergies: promethazine HCl/AL/Vomiting (04/05/2017); hydromorphone HCl/SV/Hives/Itching (04/05/2017); hydrocodone bitartrate/MO/Hives/Itching (04/05/2017); Soap/AL/Rash/Itching (04/05/2017); tramadol HCl/MO/Vomiting (04/05/2017); donepezil HCl/MO/Itching (04/05/2017); butalbital/SV/Hives/Itching (03/13/2017); hydrocodone/VOMITING, hives (04/05/2017); aspirin/MO/Hives/Itching (04/05/2017); ibuprofen/SV/Hives (03/13/2017); povidone-iodine/Hives/Itching (04/05/2017); meloxicam/AL/Itching (04/05/2017); latex/SV/Rash/Itching (03/13/2017); shellfish derived/SV/Hives/Itching (03/13/2017) Medication Allergies: promethazine HCl/AL/Vomiting (03/17/2017); hydromorphone HCl/SV/Hives/Itching (03/17/2017); hydrocodone bitartrate/MO/Hives/Itching (03/17/2017); Soap/AL/Rash/Itching (03/17/2017); tramadol HCl/MO/Vomiting (03/17/2017); donepezil HCl/MO/Itching (03/17/2017); butalbital/SV/Hives/Itching (03/13/2017); hydrocodone/VOMITING, hives (03/17/2017); aspirin/MO/Hives/Itching (03/17/2017); ibuprofen/SV/Hives (03/13/2017); povidone-iodine/Hives/Itching (03/17/2017); meloxicam/AL/Itching (03/17/2017); latex/SV/Rash/Itching (03/13/2017); shellfish derived/SV/Hives/Itching (03/13/2017) Medication Allergies: promethazine HCl/AL/Vomiting (03/13/2017); hydromorphone HCl/SV/Hives/Itching (03/13/2017); hydrocodone bitartrate/MO/Hives/Itching (03/13/2017); Soap/AL/Rash/Itching (03/13/2017); tramadol HCl/MO/Vomiting (03/13/2017); donepezil HCl/MO/Itching (03/13/2017); butalbital/SV/Hives/Itching (03/13/2017); hydrocodone/VOMITING, hives (03/13/2017); aspirin/MO/Hives/Itching (03/13/2017); ibuprofen/SV/Hives (03/13/2017); povidone-iodine/Hives/Itching (03/13/2017); meloxicam/AL/Itching (03/13/2017); latex/SV/Rash/Itching (03/13/2017); shellfish derived/SV/Hives/Itching (03/13/2017) Medication Allergies: promethazine HCl/AL/Vomiting (02/10/2017); hydromorphone HCl/SV/Hives/Itching (02/10/2017); hydrocodone bitartrate/MO/Hives/Itching (02/10/2017); Soap/AL/Rash/Itching (02/10/2017); tramadol HCl/MO/Vomiting (02/10/2017); donepezil HCl/MO/Itching (02/10/2017); butalbital/SV/Hives/Itching (02/01/2017); hydrocodone/VOMITING, hives (02/10/2017); aspirin/MO/Hives/Itching (02/10/2017); ibuprofen/SV/Hives (02/01/2017); povidone-iodine/Hives/Itching (02/10/2017); meloxicam/AL/Itching (02/10/2017); latex/SV/Rash/Itching (02/01/2017); shellfish derived/SV/Hives/Itching (02/01/2017) Medication Allergies: promethazine HCl/AL/Vomiting (02/01/2017); hydromorphone HCl/SV/Hives/Itching (02/01/2017); hydrocodone bitartrate/MO/Hives/Itching (02/01/2017); Soap/AL/Rash/Itching (02/01/2017); tramadol HCl/MO/Vomiting (02/01/2017); donepezil HCl/MO/Itching (02/01/2017); butalbital/SV/Hives/Itching (02/01/2017); hydrocodone/VOMITING, hives (02/01/2017); aspirin/MO/Hives/Itching (02/01/2017); ibuprofen/SV/Hives (02/01/2017); povidone-iodine/Hives/Itching (02/01/2017); meloxicam/AL/Itching (02/01/2017); latex/SV/Rash/Itching (02/01/2017); shellfish derived/SV/Hives/Itching (02/01/2017) Medication Allergies: Pt states that despite her allergies--she CAN take percocet promethazine HCl/AL/Vomiting (02/01/2017); hydromorphone HCl/SV/Hives/Itching (02/01/2017); hydrocodone bitartrate/MO/Hives/Itching (02/01/2017); Soap/AL/Rash/Itching (02/01/2017); tramadol HCl/MO/Vomiting (02/01/2017); donepezil HCl/MO/Itching (02/01/2017); butalbital/SV/Hives/Itching (02/01/2017); hydrocodone/VOMITING, hives (02/01/2017); aspirin/MO/Hives/Itching (02/01/2017); ibuprofen/SV/Hives (02/01/2017); povidone-iodine/Hives/Itching (02/01/2017); meloxicam/AL/Itching (02/01/2017); latex/SV/Rash/Itching (02/01/2017); shellfish derived/SV/Hives/Itching (02/01/2017) Medication Allergies: promethazine HCl/AL/Vomiting (02/01/2017); hydromorphone HCl/SV/Hives/Itching (02/01/2017); hydrocodone bitartrate/MO/Hives/Itching (02/01/2017); Soap/AL/Rash/Itching (02/01/2017); tramadol HCl/MO/Vomiting (02/01/2017); donepezil HCl/MO/Itching (02/01/2017); butalbital/SV/Hives/Itching (02/01/2017); hydrocodone/VOMITING, hives (08/26/2013); aspirin/MO/Hives/Itching (02/01/2017); ibuprofen/SV/Hives (02/01/2017); povidone-iodine/Hives/Itching (02/01/2017); meloxicam/AL/Itching (02/01/2017); latex/SV/Rash/Itching (02/01/2017); shellfish derived/SV/Hives/Itching (02/01/2017) Medication Allergies: promethazine HCl/MO/Hives (08/26/2013); hydromorphone HCl/VOMITING (08/26/2013); hydrocodone bitartrate (02/15/2015); Soap (08/26/2013); tramadol HCl/MO/VOMITING (08/26/2013); donepezil HCl (02/15/2015); butalbital/SV/Hives (11/03/2016); hydrocodone/VOMITING, hives (08/26/2013); aspirin/MO/Hives (11/03/2016); ibuprofen (08/26/2013); povidone-iodine/Hives (11/03/2016); meloxicam (08/26/2013); latex/SV/hives,itch (11/03/2016); shellfish derived/SV/Hives (11/03/2016) Latex: Latex Allergies Food Allergies: Shellfish OBSTETRICAL HISTORY EDC: 05/10/2017 00:00 : 3 Para: 1 Term: 0 : 1 SAB: 1 IAB: 0 Ectopic: 0 Livin Cesareans: 0 VBACs: 0 Multiple Births: 0 Gestational Diabetes: No Rh Sensitization: Unknown Incompetent Cervix: Yes MAYRA: No Infertility: Yes ART Treatment: No Uterine Anomaly: No IUGR: No Hx Previous C/S: No Macrosomia: No Hx Loss/Stillborn: Yes Hx : Yes Placenta Previa/Abruption: Yes Depression/PP Depression: Yes PTL/PROM: Yes Post Hemorrhage: No Current Procedures: Ultrasound; NST; Cerclage Obstetrical History Comments: G1- 2006 20 wk 5 days Abruption, infection in plactenta and previa G2- 2015 Miscarriage at 8 weeks G3- Current- Has cerclage, given Rhogam after procedure. SEE RECORDS Alcohol: No Marijuana : No Cocaine: No Other Illicit Drugs: No Cigarettes: Never Smoker. 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, 2007- [facility] 2016- Abnormal pap INFECTIOUS HISTORY Gonorrhea: No Genital Herpes: No Chlamydia: No Tuberculosis: No Syphilis: No Hepatitis: No HIV/AIDS Exposure: No Rash or Viral Illness: No HPV: Yes Infectious History Comments: +HPV-abnormal pap PHYSICAL EXAM General: Normal General: Normal General: Normal HEENT: Normal HEENT: Normal HEENT: Normal Neurologic: Normal Neurologic: Normal Neurologic: Normal Thyroid: Normal Thyroid: Normal Thyroid: Deferred Heart: Normal Heart: Normal Heart: Normal Lungs: Normal Lungs: Normal Lungs: Normal Breast: Normal Breast: Normal Breast: Deferred Back: Normal Back: Normal Back: Normal Abdomen: Normal Abdomen: Normal Abdomen: Normal Genitourinary Exam: Normal Genitourinary Exam: Normal Genitourinary Exam: Normal Extremities: Normal Extremities: Normal Extremities: Normal DTRs: Normal DTRs: Normal DTRs: Normal Pelvic Type: Adequate Pelvic Type: Adequate Pelvic Type: Adequate Vital Signs: Reviewed Vital Signs: Reviewed VAGINAL EXAM Dilatation: 4 Dilatation: 3 Dilatation: 2 Dilatation: 0 Effacement: 80 Effacement: 60 Effacement: 50 Effacement: 100 Station: -3 Station: -3 Station: -2 Station: -3 Contraction Comments: regular adequate. MEMBRANES Pooling: Positive Pooling: Negative Membranes: Ruptured Membranes: Intact Membranes: Intact Membranes: Intact Membranes: Intact Amniotic Fluid Color: Clear FETUS A EGA: 40.2 EGA: 31.5 Monitoring: External US Monitoring: External US Monitoring: External US FHR- Baseline: 120 FHR- Baseline: 130 FHR- Baseline: 150 Variability: Moderate 6-25bpm Variability: Moderate 6-25bpm Variability: Moderate 6-25bpm Accelerations: 15X15 Accelerations: 15X15 Decelerations: None Decelerations: None Decelerations: None FHR Category: Category I FHR Category: Category I Estimated Weight (gm): 3300 Presentation: Vertex Presentation: Vertex Admit Comment: pt presents after calling office with increased pressure EDC 05/10/16 EGA 35.5 abdomen nontender FHTs 130s cat 1 spec exam- cerclage visualized intact light cervical exam closed denies regular cramping precautions reviewed d/c home follow up in office on monday/ strict kick counts Admit Comment: 37yo (h/o delivery at 20+5ega due to incompetent cervix) presents for vaginal pressure and cramping and thought she PROM. However, amnisure Negative and no further leakage of fluid. Cvx visually closed with speculum. Ctx q 2-7 minutes which did not slow down with IVF. Pt reports feeling them and is breathing through them. Cvx checked by CMV and 1cm dilation. Repeat SSE and SVE by myself approx 2 hours later with exam unchanged. Cvx dilation appears to be external os but no tension on cerclage and no vaginal bleeding. Cerclage suture easily visible. Will get BMZ on board. Admit for obsevation due to need for prolonged monitoring. Does no appear to be in labor but due to cerclage in place and concern for change in status with cerclage in place. Will begin procardia to help decrease contraction frequention. CL on US approx 5cm PLANS FOR LABOR AND DELIVERY Labor and Delivery: None Pain Management: Medications; Epidural Feeding Preference: Both Benefit of Breast Feed Discussed: Yes Circumcision: N/A INFORMED CONSENT Informed Consent Obtained: Section Delivery Informed Consent Obtained: Vaginal Delivery Informed Consent Obtained: Risks, Benefits and Alternatives Discussed Assignment: Fabio Hayward MD Signature: with User ID: Andernhan Signature: with User ID: Heath Signature: with User ID: Heath Signature: with User ID: Jacobman : with User ID: [email or web address] : with User ID: Heath : with User ID: [email or web address] : with User ID: Angel
[2017-05-13] MEDS: HYDROXYZINE PAMOATE 25 MG CAPSULE PO SCH (20:01)
[2017-05-13] MEDS: DOCUSATE SODIUM 100 MG CAPSULE PO SCH (20:01)
[2017-05-13] MEDS: OXYCODONE-ACETAMINOPHEN 5-325 MG TABLET PO PRN (20:06)
[2017-05-13] MEDS: RINGERS SOLUTION,LACTATED 1,000 ML IV PRN (21:16)
[2017-05-13] MEDS: CYANOCOBALAMIN (VITAMIN B-12) 1,000 MCG TABLET PO SCH (21:17)
[2017-05-13] MEDS ORDERED: VITAMIN B PO SCH (22:00)
[2017-05-13] MEDS ORDERED: KETOROLAC TROMETHAMINE INJ/PF 30 MG/1 ML SDV IV SCH (22:00)
[2017-05-14] MEDS: OXYCODONE-ACETAMINOPHEN 5-325 MG TABLET PO PRN ×4 (02:42→21:42)
[2017-05-14] MEDS: RINGERS SOLUTION,LACTATED 1,000 ML IV PRN (04:59)
[2017-05-14 07:49] LABS: HEMATOCRIT 35.3 % (36.0-47.0); MEAN CORPUSCULAR HEMOGLOBIN 32.9 pg (27.0-33.4); MEAN CORPUSCULAR VOLUME 97 fl (80-97); PLATELET COUNT 217 10^3/uL (150-450); RED BLOOD COUNT 3.65 10^6/uL (3.72-5.28); RED CELL DISTRIBUTION WIDTH 13.7 % (11.5-14.0); WHITE BLOOD COUNT 18.5 10^3/uL (4.0-10.5)
[2017-05-14] MEDS: LANSOPRAZOLE 15 MG TAB.RAP.DR PO SCH (07:59)
--- NOTE | 2017-05-14 08:58 | PDOC PROGRESS REPORT ---
Subjective-OB Subjective: Post Delivery Day: 37 year old. Denies any needs at this time Physical Exam (OB) Vital Signs: Temp Pulse Resp BP Pulse Ox 98.4 F 81 16 118/65 98 05/14/17 07:44 05/14/17 07:44 05/14/17 07:44 05/14/17 07:44 05/14/17 07:44 Intake & Output 05/13/17 05/14/17 05/15/17 06:59 06:59 06:59 Intake Total 1370 Output Total 3500 Balance -2130 - PIH/Pre-Eclampsia Clonus: Negative Headache: Absent Epigastric Pain: No Visual Changes: No - Dressing Removed: No Incision: Dressing - Lochia Lochia Amount: Scant < 10 ml Lochia Color: Rubra/Red - Abdomen Description: Tender, Soft Hernia Present: No Flatus Presence: Present Fundal Description: Firm, Midline Fundal Height: u/u - u/2 Objective-Diagnostic Laboratory: 05/14/17 07:01 05/13/17 05/14/17 15:10 07:01 WBC 18.5 H RBC 3.65 L Hgb 12.0 Hct 35.3 L MCV 97 MCH 32.9 MCHC 34.0 RDW 13.7 Plt Count 217 Carbonic Acid 1.62 H HCO3/H2CO3 Ratio 15:1 ABG pH 7.27 L ABG pCO2 53.9 H ABG pO2 19.4 L* ABG HCO3 24.3 ABG O2 Saturation 24.7 L ABG Base Excess -3.3 FiO2 CORD BLOOD
[2017-05-14] MEDS ORDERED: (PENDING PHARMACY ID) (Esomeprazole Magnesium [Nexium] 20 MG) PO SCH (10:00)
[2017-05-14] MEDS ORDERED: (PENDING PHARMACY ID) (Prenatal Vit/Iron Fum/Folic Ac [Prenatal Tablet] 1 TAB) PO SCH (10:00)
[2017-05-14] MEDS: ACETAMINOPHEN WITH CODEINE #3 TABLET PO SCH (10:15)
[2017-05-14] MEDS: PRENATAL VITAMIN W DHA CAPSULE PO SCH (10:15)
[2017-05-14] MEDS: DOCUSATE SODIUM 100 MG CAPSULE PO SCH ×2 (10:16→16:56)
[2017-05-14] MEDS: HYDROXYZINE PAMOATE 25 MG CAPSULE PO SCH (16:55)
[2017-05-14] MEDS: CYANOCOBALAMIN (VITAMIN B-12) 1,000 MCG TABLET PO SCH (21:29)
[2017-05-14] MEDS ORDERED: HYDROCORTISONE 1% CREAM 28.35 GM TP ONE (22:30)
[2017-05-14] MEDS ORDERED: HYDROCORTISONE 1% CREAM 28.35 GM ONE (22:33)
[2017-05-15] MEDS: OXYCODONE-ACETAMINOPHEN 5-325 MG TABLET PO PRN ×2 (03:50→09:11)
[2017-05-15] MEDS: LANSOPRAZOLE 15 MG TAB.RAP.DR PO SCH (05:47)
--- NOTE | 2017-05-15 08:46 | PDOC PROGRESS REPORT ---
Subjective-OB Subjective: Post Delivery Day: 37 year old. Denies any needs at this time s/p primary c section ff@u-1 mild lochia abdominal dressing intact tympanic abdomen reports +flatus and ambulating well -bm encouraged pt to increase ambulation not going home until tomorrow d/c in AM Physical Exam (OB) Vital Signs: Temp Pulse Resp BP Pulse Ox 98.2 F 87 18 116/84 100 05/15/17 07:16 05/15/17 07:16 05/15/17 07:16 05/15/17 07:16 05/15/17 07:16 Intake & Output 05/14/17 05/15/17 05/16/17 06:59 06:59 06:59 Intake Total 1370 Output Total 3500 1500 Balance -2130 -1500 - PIH/Pre-Eclampsia Clonus: Negative Headache: Absent Epigastric Pain: No Visual Changes: No - Dressing Removed: No Incision: Well Approximated Closure Type: Sutures - Lochia Lochia Amount: Small 10-25 ml Lochia Color: Rubra/Red - Abdomen Description: Soft, Round Hernia Present: No Fundal Description: Firm, Midline Fundal Height: u/u - u/2 Objective-Diagnostic Laboratory: 05/14/17 07:01
[2017-05-15] MEDS: PRENATAL VITAMIN W DHA CAPSULE PO SCH (09:11)
[2017-05-15] MEDS: DOCUSATE SODIUM 100 MG CAPSULE PO SCH (09:12)
[2017-05-15] MEDS: ACETAMINOPHEN WITH CODEINE #3 TABLET PO SCH (09:12)
--- NOTE | 2017-05-15 09:22 | PDOC DISCHARGE SUMMARY ---
Final Diagnosis Discharge Date: 05/15/17 - Final Diagnosis (1) Status post primary low transverse section Is this a current diagnosis for this admission?: Yes Discharge Data - Discharge Medication Home Medications: Vit/Iron Fum/Folic AC [ Tablet] 1 tab PO DAILY 11/03/16 Vitamin B 12 1 tab PO QHS 11/03/16 Hydroxyzine Pamoate [Vistaril] 25 mg PO QPM 02/01/17 Acetaminophen with Codeine [Tylenol #3 Tablet] 1 tab PO DAILY 04/19/17 Esomeprazole Magnesium [Nexium] 20 mg PO DAILY 05/06/17 Ondansetron HCl [Zofran 4 mg Tablet] 1 - 2 tab PO Q4H PRN 05/06/17 Reason(s) for Admission: Induction of Labor Procedures: None Intrapartum Procedure(s): : Low Cervical, Transverse - Diagnosis Test Laboratory: Temp Pulse Resp BP Pulse Ox 98.2 F 87 18 116/84 100 05/15/17 07:16 05/15/17 07:16 05/15/17 07:16 05/15/17 07:16 05/15/17 07:16 05/12/17 05/12/17 05/14/17 06:49 06:49 07:01 RBC 3.82 3.65 L Hgb 12.8 12.0 Hct 36.7 35.3 L Urine Opiates Screen UNCONFIRMED POSITIVE - Discharge information/Instructions Discharge Activity: Activity As Tolerated Discharge Diet: Regular Disposition: HOME, SELF-CARE Follow up with: [facility] in: 1
[2017-05-15] MEDS ORDERED: HYDROCORTISONE 1% CREAM 28.35 GM TP SCH (10:00)
[2017-05-15 12:20] VITALS: BP 135/70
== END 2017-05-15 13:20 | disposition home or self-care (01) | DRG 766 ==
LOC: LR 06:20 → 2S 05-13 17:30
PROVIDERS: ADMIT Obstetrics & Gynecology Gynecology; ATTEND Obstetrics & Gynecology Gynecology
PROC: 4A1H7CZ Monitoring of Products of Conception, Cardiac Rate, Via Natural or Artificial Opening (ICD-10-PCS; principal; 2017-05-13)
PROC: 10D00Z1 Extraction of Products of Conception, Low, Open Approach (ICD-10-PCS; 2017-05-13)
PROC: 10H07YZ Insertion of Other Device into Products of Conception, Via Natural or Artificial Opening (ICD-10-PCS; 2017-05-13)
DX: O65.9 Obstructed labor due to maternal pelvic abnormality, unspecified (principal); O76 Abnormality in fetal heart rate and rhythm complicating labor and delivery; O69.81X0 Labor and delivery complicated by cord around neck, without compression, not applicable or unspecified; O48.1 Prolonged pregnancy; O61.0 Failed medical induction of labor; Z91.040 Latex allergy status; Z91.013 Allergy to seafood; Z88.6 Allergy status to analgesic agent; Z37.0 Single live birth
CPT/HCPCS: 1961; 36415; 80307; 80361; 81005; 82803; 85025; 85027; 86592; 86850; 86900; 86901; 94799; J0131; J0690; J1200; J2250; J2270; J2300; J2405; J2590; J3010; J3490; J7120

== ENCOUNTER 2018-01-03 15:38 | Emergency (ER) | payer MEDICAID ==
[2018-01-03] MEDS ORDERED: ACETAMINOPHEN 325 MG TABLET PO ONE (16:07)
--- NOTE | 2018-01-03 16:08 | ER Document Report ---
HPI - HPI Pain Level: 5 Notes: Patient is a 37-year-old female with no significant past medical history who presents to the ED complaining of left lateral ankle pain status post twist injury prior to arrival. Patient states that she was stepping off of her back porch when she rolled her ankle felt a pop. Patient states that the pain does not radiate. She is unable to bear weight without discomfort at this time. No other concerns or complaints. Denies any headache, fever, head injury, neck pain, URI, sore throat, chest pain, palpitations, syncope, cough, shortness of breath, wheeze, dyspnea, abdominal pain, nausea/vomiting/diarrhea, urinary retention, dysuria, hematuria, numbness/tingling, muscle paralysis/weakness, or rash. - ROS Systems Reviewed and Negative: Yes All other systems reviewed and negative - CONSTITUTIONAL Constitutional: DENIES: Fever, Chills - REPRODUCTIVE Reproductive: REPORTS: : - MUSCULOSKELETAL Musculoskeletal: REPORTS: Extremity pain - left foot Past Medical History - Social History Smoking Status: Never Smoker Family History: Reviewed & Not Pertinent Patient has suicidal ideation: No Patient has homicidal ideation: No - Past Medical History Cardiac Medical History: Denies: Hx Coronary Artery Disease, Hx Heart Attack, Hx Hypertension Pulmonary Medical History: Reports: Hx Bronchitis Denies: Hx Asthma, Hx COPD, Hx Pneumonia Neurological Medical History: Reports: Hx Migraine. Denies: Hx Cerebrovascular Accident, Hx Seizures Renal/ Medical History: Reports: Hx Ovarian Cysts - History of PCOS.. Denies : Hx Peritoneal Dialysis Musculoskeletal Medical History: Denies Hx Arthritis Psychiatric Medical History: Reports: Hx Depression Past Surgical History: Reports: Hx Oral Surgery, Hx Orthopedic Surgery - rt foot x2 - Immunizations Hx Diphtheria, Pertussis, Tetanus Vaccination: No Vertical Provider Document - CONSTITUTIONAL Agree With Documented VS: Yes Notes: PHYSICAL EXAMINATION: GENERAL: Well-appearing, well-nourished and in no acute distress. LUNGS: Breath sounds clear to auscultation bilaterally and equal. No wheezes rales or rhonchi. HEART: Regular rate and rhythm without murmurs, rubs, gallops. Musculoskeletal: Lt ankle: LROM to passive/active dorsiflexion. Strength 5+/5. N/V intact distal. + tenderness to the medial malleolus. No bony tenderness of the foot. Achilles intact. Extremities: No cyanosis, clubbing, or edema b/l. Peripheral pulses 2+. Capillary refill less than 3 seconds. NEUROLOGICAL: Normal speech. Normal sensory, motor exams PSYCH: Normal mood, normal affect. SKIN: Warm, Dry, normal turgor, no rashes or lesions noted. - INFECTION CONTROL TRAVEL OUTSIDE OF THE [place] IN LAST 30 DAYS: No Course - Re-evaluation Re-evalutation: 01/03/18 18:20 Patient is an afebrile, well-hydrated, 37-year-old female who presents to the ED with a non displaced fracture to the distal Lt fibula. Vitals are acceptable without any significant tachycardia, tachypnea, or hypoxia. PE is otherwise unremarkable for any neurovascular compromise, obvious tendon/ ligament rupture, open fracture, septic joint. See XR result. Splint/crutches given. Tylenol given PO. Patient is nontoxic-appearing. No other labs or imaging warranted at this time based on H&P. Conservative measures otherwise for symptoms. Pt has had percocet in the past (see allergy list) which I will give her a small script to go home. Recheck with your PCM in 3-5 days. Call orthopedics tomorrow to schedule an appointment for further evaluation and management. Return to the ED with any worsening/concerning symptoms otherwise as reviewed in discharge. Patient is in agreement. - Vital Signs Vital signs: Temp Pulse Resp BP Pulse Ox 97.6 F 87 16 119/76 98 01/03/18 15:49 01/03/18 15:49 01/03/18 15:49 01/03/18 15:49 01/03/18 15:49 Procedures - Immobilization Left Ankle Time completed: 18:20 Pre-Proc Neuro Vasc Exam: Normal Immobilizer type: Posterior ankle Performed by: PCT Post-Proc Neuro Vasc Exam: Normal, Unchanged from pre-exam Discharge - Discharge Clinical Impression: Fracture of distal end of left fibula Qualifiers: Encounter type: initial encounter Fracture type: closed Fracture morphology: unspecified fracture morphology Qualified Code(s): S82.832A - Other fracture of upper and lower end of left fibula, initial encounter for closed fracture Condition: Stable Disposition: HOME, SELF-CARE Instructions: Use of Crutches ([facility]), Fracture of Distal Fibula ([facility]), Ice & Elevation ([facility]), Splint Precautions ([facility]) Additional Instructions: Rest, Ice, Compression, Elevation Use crutches/splint as directed Tylenol/ibuprofen as needed F/u with your PCP in 3-5 days for a recheck Call orthopedics tomorrow to schedule an appointment for further evaluation and management Return to the ED with any worsening symptoms and/or development of fever, headache, chest pain, palpitations, syncope, shortness of breath, trouble breathing, abdominal pain, n/v/d, muscle weakness/paralysis, numbness/tingling, swelling, redness, or other worsening symptoms that are concerning to you. Prescriptions: Oxycodone HCl/Acetaminophen [Oxycodone-Acetaminophen 5-325] 1 each PO BID #10 tablet Referrals: MURRAY PHILLIPS MD [Primary Care Provider] - Follow up as needed [facility] [Provider Group] - Follow up in 3-5 days
--- NOTE | 2018-01-03 16:25 | RADIOLOGY REPORT (SQ) ---
EXAM DESCRIPTION: ANKLE LEFT COMPLETE COMPLETED DATE/TIME: 01/03/2018 4:17 pm REASON FOR STUDY: left ankle pain s/p injury COMPARISON: None. NUMBER OF VIEWS: Three views left ankle. LIMITATIONS: None. FINDINGS: Relatively nondisplaced transverse intra-articular fracture through the distal fibula. Th is lies just below the level of the mortise. Overlying soft tissue swelling. Remaining bones intact . Joint effusion is present. OTHER: No other significant finding. IMPRESSION: Nondisplaced distal fibular fracture. TECHNICAL DOCUMENTATION: JOB ID: [id number] Reading location - IP/workstation name: [email or web address]
[2018-01-03 18:30] VITALS: BP 129/78
== END 2018-01-03 18:49 | disposition home or self-care (01) ==
LOC: ER 15:38
PROC: 2W3RX1Z Immobilization of Left Lower Leg using Splint (ICD-10-PCS; principal; 2018-01-03)
DX: S82.832A Other fracture of upper and lower end of left fibula, initial encounter for closed fracture (principal); X50.1XXA Overexertion from prolonged static or awkward postures, initial encounter; Y93.9 Activity, unspecified; Y92.9 Unspecified place or not applicable
CPT/HCPCS: 99283; 73610; 29515; J3490

== ENCOUNTER 2018-02-27 07:08 | Inpatient (IN) | payer MEDICAID ==
[2018-02-23 12:47] LABS: APPEARANCE,URINE CLEAR; BILIRUBIN,URINE NEGATIVE (NEGATIVE); COLOR,URINE STRAW; GLUCOSE, URINE NEGATIVE (NEGATIVE); KETONES,URINE NEGATIVE (NEGATIVE); LEUKOCYTE ESTERASE,URINE NEGATIVE (NEGATIVE); NITRITE,URINE NEGATIVE (NEGATIVE); PROTEIN,URINE NEGATIVE (NEGATIVE); UROBILINOGEN,URINE NEGATIVE mg/dL (<2.0)
[2018-02-23 12:51] LABS: HEMATOCRIT 37.8 % (36.0-47.0); HEMOGLOBIN 13.3 g/dL (12.0-15.5); MEAN CORPUSCULAR HEMOGLOBIN 32.9 pg (27.0-33.4); MEAN CORPUSCULAR HGB CONC 35.2 g/dL (32.0-36.0); MEAN CORPUSCULAR VOLUME 94 fl (80-97); PLATELET COUNT 356 10^3/uL (150-450); RED BLOOD COUNT 4.04 10^6/uL (3.72-5.28); RED CELL DISTRIBUTION WIDTH 12.8 % (11.5-14.0); WHITE BLOOD COUNT 6.8 10^3/uL (4.0-10.5)
[2018-02-23 13:08] LABS: ALANINE AMINOTRANSFERASE 25 U/L (9-52); ALBUMIN 4.5 g/dL (3.5-5.0); ALKALINE PHOSPHATASE 64 U/L (38-126); ANION GAP 12 (5-19); ASPARTATE AMINO TRANSFERASE 24 U/L (14-36); BILIRUBIN,DIRECT 0.2 mg/dL (0.0-0.4); BILIRUBIN,TOTAL 0.5 mg/dL (0.2-1.3); BLOOD UREA NITROGEN 7 mg/dL (7-20); CALCIUM 9.4 mg/dL (8.4-10.2); CARBON DIOXIDE 28 mmol/L (22-30); CHLORIDE 106 mmol/L (98-107); GLUCOSE 83 mg/dL (75-110); POTASSIUM 4.5 mmol/L (3.6-5.0); SODIUM 145.8 mmol/L (137-145); TOTAL PROTEIN 7.3 g/dL (6.3-8.2)
[~2018-02-27 07:08] MED LIST: ACETAMINOPHEN 1,000 MG/100 ML RTUPB IV ONE; CEFAZOLIN 1 GM/D5W RTU 1 GM/50 ML RTUPB IV PRN; DEXAMETHASONE SOD PHOSPHATE INJ 4 MG/1 ML VIAL ONE; FENTANYL CITRATE INJ/PF 100 MCG/2 ML AMPUL ONE; LACTATED RINGERS 1000 ML IV PRN; LIDOCAINE 0.5% INJ-PF (5 MG/ML) 50 ML SDV SUBCUT PRN; LIDOCAINE 2% INJ-PF (20 MG/ML) 10 ML AMPUL ONE; MIDAZOLAM 2 MG/2 ML INJ ONE; ONDANSETRON HCL INJ/PF 4 MG/2 ML SDV ONE; PROPOFOL INJ 200 MG/20 ML VIAL IV ONE; SUGAMMADEX SODIUM 200 MG/2 ML SDV IV ONE
[2018-02-27] MEDS ORDERED: BUPIVACAINE HCL 0.5 % INJ/PF 30 ML SDV ONE (07:27)
[2018-02-27] MEDS ORDERED: CEFAZOLIN 1 GM/D5W RTU 1 GM/50 ML RTUPB IV ONE (07:42)
[2018-02-27] MEDS ORDERED: METOCLOPRAMIDE HCL INJ/PF 10 MG/2 ML SDV ONE (09:15)
[2018-02-27] MEDS ORDERED: SUCCINYLCHOLINE CHLORIDE INJ 200 MG/10 ML VIAL ONE (09:15)
[2018-02-27] MEDS ORDERED: ROCURONIUM BROMIDE INJ 50 MG/5 ML VIAL IV ONE (09:15)
[2018-02-27] MEDS ORDERED: KETOROLAC TROMETHAMINE 60 MG/2 ML SDV ONE (09:15)
[2018-02-27] MEDS ORDERED: PROMETHAZINE HCL INJ 25 MG/1 ML VIAL IV PRN ×2 (10:38)
[2018-02-27] MEDS ORDERED: ONDANSETRON HCL INJ/PF 4 MG/2 ML SDV IV PRN (10:38)
[2018-02-27] MEDS ORDERED: FENTANYL CITRATE INJ/PF 100 MCG/2 ML AMPUL IV PRN ×3 (10:38)
[2018-02-27] MEDS ORDERED: MEPERIDINE HCL/PF INJ 25 MG/1 ML DISP.SYRIN IV PRN (10:38)
[2018-02-27] MEDS ORDERED: DIPHENHYDRAMINE HCL 50 MG/ML VIAL IV PRN (10:38)
[2018-02-27] MEDS ORDERED: MORPHINE SULFATE 10 MG/ML INJ IV PRN (10:38)
[2018-02-27] MEDS: FENTANYL CITRATE INJ/PF 100 MCG/2 ML AMPUL ONE ×2 (11:50→11:51)
[2018-02-27] MEDS ORDERED: KETOROLAC TROMETHAMINE 10 MG TABLET PO PRN ×2 (12:27→13:11)
[2018-02-27] MEDS ORDERED: ONDANSETRON HCL 8 MG TABLET PO PRN (13:52)
[2018-02-27] MEDS ORDERED: ONDANSETRON HCL 8 MG TABLET PO SCH (14:00)
--- NOTE | 2018-02-27 15:35 | OPERATIVE REPORT E ---
Operative Report NAME: ROXANA PARTER : 1980 AGE: 38Y DATE OF SURGERY: 02/27/2018 ROOM: 208 PREOPERATIVE DIAGNOSES: 1. Menometrorrhagia. 2. Dysmenorrhea. POSTOPERATIVE DIAGNOSES: 1. Menometrorrhagia. 2. Dysmenorrhea. PROCEDURE: Robotically-assisted PRISCILLA/BSO. SURGEON: Uri MCBRIDE M.D. ESTIMATED BLOOD LOSS: Less than 100 mL. TISSUE REMOVED OR ALTERED: Uterus, tubes, and ovaries. ANESTHESIA: General. PROCEDURE: The patient was placed in a dorsal lithotomy position, prepped and draped in sterile fashion. Speculum was placed and cervix grasped with a single-toothed tenaculum and sounded to a depth of 8 cm. A uterine manipulator was then placed in the usual fashion. Speculum was removed. Single-toothed tenaculum was removed. Attention was turned to the abdomen where a supraumbilical incision was made. The trocar was introduced with insufflation of the abdomen and induction of laparoscope, visualized tubes, uterus, and ovaries. Second puncture was made lateral to the first and a 5 trocar was introduced. Third lateral on the right and a 5 was introduced and one above the superior iliac crest on the right and a 10-12 trocar was introduced. Robot was then docked in the usual fashion. Using monopolar and bipolar cautery, the right was identified and cauterized and divided. This was continued down to broad ligament to the ascending branch of the on the right. Procedure was repeated on the left. A bladder flap was created with sharp dissection. The cervix and uterus were then removed circumscribing the cervix with cautery. The uterus, tubes, and ovaries were removed from the pelvis. The cuff was closed with a running suture of #1 Vicryl. Hemostasis was noted. The pelvis irrigated with normal saline, and again, hemostasis was noted. The abdomen deflated after removing the instruments and robot undocked and the incision closed with 0 Vicryl for the fascia and 4-0 Vicryl for the skin. All counts were correct. Urine remained clear throughout the procedure. She was taken to recovery room in good condition. DICTATING PHYSICIAN: Uri MCBRIDE M.D. [id number] PHY#: [id number] ID: [id number] JOB#: [id number] ACCT: [id number] cc:Uri MCBRIDE M.D. >
[2018-02-27 16:37] VITALS: BP 114/76
--- NOTE | 2018-02-28 12:37 | OPERATIVE REPORT E ---
Operative Report NAME: ROXANA PRATER : 1980 AGE: 38Y DATE OF SURGERY: 02/27/2018 ROOM: 208 ADDENDUM PROCEDURE: Robotically-assisted total hysterectomy and bilateral salpingo-oophorectomy. DICTATING PHYSICIAN: Uri MCBRIDE M.D. [id number] PHY#: [id number] ID: [id number] JOB#: [id number] ACCT: [id number] cc:Uri MCBRIDE M.D. >
== END 2018-02-27 17:09 | disposition home or self-care (01) | DRG 743 ==
LOC: 2N 07:08 → OROUT 07:57 → EDSTATUS 10:15 → OROUT 12:59 → LR 12:59
PROVIDERS: ADMIT Obstetrics & Gynecology Gynecology; ATTEND Obstetrics & Gynecology Gynecology
PROC: 0UT20ZZ Resection of Bilateral Ovaries, Open Approach (ICD-10-PCS; 2018-02-27)
PROC: 0UT70ZZ Resection of Bilateral Fallopian Tubes, Open Approach (ICD-10-PCS; 2018-02-27)
PROC: 8E0W0CZ Robotic Assisted Procedure of Trunk Region, Open Approach (ICD-10-PCS; 2018-02-27)
PROC: 0UT90ZZ Resection of Uterus, Open Approach (ICD-10-PCS; principal; 2018-02-27 10:15)
DX: N92.1 Excessive and frequent menstruation with irregular cycle (principal); N94.6 Dysmenorrhea, unspecified
CPT/HCPCS: 36415; 80053; 81001; 81025; 840; 85027; 86850; 86900; 86901; 88307; 90471; 90686; C1758; G0008; J0131; J0330; J0690; J1100; J1885; J2250; J2405; J2704; J2765; J3010; J3490

== ENCOUNTER → 2019-08-12 | Outpatient (CLI) | payer MEDICAID ==
--- NOTE | 2019-08-12 17:27 | RADIOLOGY REPORT (SQ) ---
EXAM DESCRIPTION: C SP 4 OR 5 VIEWS IMAGES COMPLETED DATE/TIME: 08/12/2019 3:42 pm REASON FOR STUDY: NECK PAIN M54.2 CERVICALGIA COMPARISON: None. NUMBER OF VIEWS: Five views. TECHNIQUE: AP, lateral, obliques and odontoid radiographic images acquired of the cervical spine. LIMITATIONS: None. FINDINGS: MINERALIZATION: Normal. ALIGNMENT: Anatomic. VERTEBRAE: Vertebral bodies of normal height. DISCS: No significant osteophytes or sclerosis. Disc height maintained. FORAMINA: No osteophytes or foraminal narrowing. LATERAL AND POSTERIOR ELEMENTS: Facets, lateral masses and spinous processes without significant find ings. HARDWARE: None in the spine. SOFT TISSUES: No masses or calcifications. Lung apices clear. OTHER: No other significant finding. IMPRESSION: NO SIGNIFICANT RADIOGRAPHIC FINDING IN THE CERVICAL SPINE. TECHNICAL DOCUMENTATION: JOB ID: [id number] 2010 [employer]- All Rights Reserved Reading location - IP/workstation name: [email or web address]
== END ==
LOC: OD 15:22
PROVIDERS: ATTEND Family Medicine
DX: M54.2 Cervicalgia (principal)
CPT/HCPCS: 72050

== ENCOUNTER 2020-04-29 07:00 | Day surgery (SDC) | payer MEDICAID ==
[2020-04-29] MEDS ORDERED: PROPOFOL INJ 200 MG/20 ML VIAL IV ONE (07:05)
[2020-04-29 09:21] VITALS: BP 99/69
--- NOTE | 2020-04-29 17:39 | Operative Report ---
Operative Report DATE OF SURGERY: 04/29/20 Operative Report: The risk, benefits and alternatives of the procedure including the risk of bleeding, perforation requiring surgery have been explained to the patient in detail and informed consent has been obtained. Patient is taken back to the endoscopy suite and placed in left, lateral decubital position. Timeout was called. Propofol medication is administered. Rectal examination is done which did not reveal any masses, tears or fissures. An Olympus videoscope was introduced into the patient's rectum. The scope was then carefully advanced all the way to the cecum. Cecum was identified by the usual anatomical landmarks including the ileocecal valve as well as the appendiceal office. Photodocumentation is obtained. Scope was then sequentially pulled back via the various segments of the colon including the ascending colon, hepatic flexure, transverse colon, splenic flexure, descending colon and finally into the rectosigmoid portions of the colon. Retroflexion maneuvers performed. The risks benefits and alternatives of the procedure explained to the patient in detail and informed consent is obtained.A GIF Olympus video scope was inserted into the patient's mouth and hypopharynx, the esophagus is identified intubated and insufflated, the scope was then advanced through the esophagus stomach and duodenum, retroflexion maneuver is done, the esophagus stomach and first and second portions of the duodenum examined PREOPERATIVE DIAGNOSIS: Change in bowel habits. Gastroesophageal reflux disease POSTOPERATIVE DIAGNOSIS: Right side colon inflammation status post biopsy. Gastritis status post biopsy OPERATION: Colonoscopy biopsy. EGD with biopsy SURGEON: CHAN CHRISTIANSEN ANESTHESIA: LMAC TISSUE REMOVED OR ALTERED: As noted above. COMPLICATIONS: None. ESTIMATED BLOOD LOSS: None. INTRAOPERATIVE FINDINGS: As noted above. PROCEDURE: Patient tolerated the procedure well. No immediate postprocedure complications are noted. Patient is discharged in good condition. Discharge date 04/29/2020. Discharge diet: Regular. Discharge activity: Regular. 2 to 3-week follow-up to discuss findings. Patient is instructed to call the office or proceed to the emergency room should there be any further palpitations. Wait on the pathology.
== END 2020-04-29 10:00 | disposition home or self-care (01) ==
LOC: OROUT 07:00
PROVIDERS: ATTEND Internal Medicine Gastroenterology
DX: K29.70 Gastritis, unspecified, without bleeding (principal); K52.9 Noninfective gastroenteritis and colitis, unspecified; K90.0 Celiac disease; Z01.812 Encounter for preprocedural laboratory examination; Z20.822 Contact with and (suspected) exposure to COVID-19; R89.4 Abnormal immunological findings in specimens from other organs, systems and tissues; Z98.1 Arthrodesis status; Z82.69 Family history of other diseases of the musculoskeletal system and connective tissue; Z79.899 Other long term (current) drug therapy; Z79.1 Long term (current) use of non-steroidal anti-inflammatories (NSAID); F33.9 Major depressive disorder, recurrent, unspecified
CPT/HCPCS: 43239; 45380; 87635; 88305 ×2; J2704; C9803; 813